=== PATIENT | male | born 1960 | race Caucasian/White ===

== ENCOUNTER → 2018-01-09 07:03 | Outpatient (CLI) | payer OTHER, SELFPAY ==
[2018-01-09 08:14] LABS: Creatinine Urine Random 128.1 mg/dL
[2018-01-09 08:21] LABS: Microalbumi Creatinin Ratio Ur 8.5 ug/mg CR (<30); Microalbumin Urine Random 1.1 mg/dL (0-1.6)
[2018-01-09 09:57] LABS: Hemoglobin A1C% w Est Avg Glu 6.6 % (4.0-6.0)
[2018-01-09 10:17] LABS: Alanine Aminotransferase 25 IU/L (21-72); Albumin 4.4 g/dL (3.5-5.0); Albumin Globulin Ratio 1.4 (1.0-2.8); Alkaline Phosphatase 58 U/L (38-126); Aspartate Aminotransferase 21 IU/L (17-59); BUN Creatinine Ratio 21.3 (6-22); Bilirubin Total 0.7 mg/dL (0.2-1.3); Blood Urea Nitrogen 17 mg/dL (9-20); Calcium 9.7 mg/dL (8.4-10.2); Carbon Dioxide 28 mmol/L (22-32); Chloride 97 mmol/L (98-107); Cholesterol 166 mg/dL (140-199); Estimated Glomerular Filt Rate > 60.0 mL/min (>60); Globulin 3.1 g/dL (1.7-4.1); Glucose 126 mg/dL (70-100); HDL Cholesterol 33 mg/dL (40-60); HEMOLYSIS < 15 (0-50); LDL Cholesterol Calculated 59 mg/dL (<100); Potassium 4.7 mmol/L (3.4-5.1); Sodium 140 mmol/L (137-145); Total Protein 7.5 g/dL (6.3-8.2); Triglycerides 370 mg/dL (35-150)
== END ==
PROVIDERS: PCP Physician Assistant; Visit Provider Physician Assistant
DX: E10.9 Type 1 diabetes mellitus without complications (principal)
CPT/HCPCS: 36415; 80053; 80061; 82043; 82570; 83036

== ENCOUNTER → 2018-05-02 16:42 | Outpatient (CLI) | payer OTHER, SELFPAY | PROVIDERS: PCP Physician Assistant; Visit Provider Physician Assistant | DX: Z13.9 Encounter for screening, unspecified (principal) ==

== ENCOUNTER → 2018-05-02 16:52 | Outpatient (CLI) | payer OTHER, SELFPAY ==
[2018-05-02 17:27] LABS: Add Manual Diff / Slide Review NO; Basophils Percent Auto 0.7 % (0-2); Hematocrit 43.8 % (41-53); Hemoglobin 15.2 g/dL (13.5-17.5); Lymphocytes Percent Auto 19.4 % (25-40); Mean Corpuscular HGB Conc 34.8 % (30-36); Mean Corpuscular Hemoglobin 31.3 PG (26-34); Monocytes Percent Auto 9.5 % (3-14); Neutrophils Absolute Auto 7100 /uL (3000-5900); Neutrophils Percent Auto 68.4 % (50-75); Platelet Count 247 X10^3/uL (150-400); Red Blood Cell Count 4.86 X10^6/uL (4.5-5.9); Red Cell Distribution Width 12.8 % (11.6-14.8); White Blood Cell Count 10.5 X10^3/uL (4.5-11.0)
[2018-05-02 17:39] LABS: Alanine Aminotransferase 68 IU/L (21-72); Albumin 4.3 g/dL (3.5-5.0); Albumin Globulin Ratio 1.4 (1.0-2.8); Alkaline Phosphatase 67 U/L (38-126); Aspartate Aminotransferase 47 IU/L (17-59); BUN Creatinine Ratio 16.3 (6-22); Bilirubin Total 0.4 mg/dL (0.2-1.3); Blood Urea Nitrogen 13 mg/dL (9-20); Calcium 9.5 mg/dL (8.4-10.2); Carbon Dioxide 21 mmol/L (22-32); Chloride 105 mmol/L (98-107); Estimated Glomerular Filt Rate > 60.0 mL/min (>60); Glucose 132 mg/dL (70-100); HEMOLYSIS 20 (0-50); Potassium 4.2 mmol/L (3.4-5.1); Sodium 141 mmol/L (137-145); Total Protein 7.3 g/dL (6.3-8.2)
== END ==
PROVIDERS: PCP Physician Assistant; Visit Provider Physician Assistant
DX: R19.7 Diarrhea, unspecified (principal)
CPT/HCPCS: 36415; 80053; 85025

== ENCOUNTER → 2018-05-03 09:18 | Outpatient (CLI) | payer OTHER, SELFPAY ==
[2018-05-03 17:30] LABS: Clostridium Difficile Tox PCR Negative for C. diff
== END ==
PROVIDERS: PCP Physician Assistant; Visit Provider Physician Assistant
DX: R19.7 Diarrhea, unspecified (principal)
CPT/HCPCS: 87015; 87045; 87427; 87493; 87899

== ENCOUNTER 2018-05-20 07:28 | Day surgery (SDC) | payer OTHER, SELFPAY ==
--- NOTE | 2018-05-20 | PATH_ITS ---
[facility] Accession Number: [id number] . 01 Material submitted: . SIGMOID POLYP AT 30 . 02 Diagnosis: Sigmoid Colon Polyp at 30 cm: Tubular adenoma. MRV/05/21/2018 . 02 Electronically signed: . Sonny Coppola MD, PhD, Pathologist NPI- [id number] . 01 Gross description: . Received one formalin-filled container labeled with the patient's name and labeled sigmoid polyp at 30. The specimen consists of two 0.1 to 0.3 cm portions of tissue. Entirely submitted in one cassette. [place] [id number] /[facility] . 02 Pathologist provided ICD-10: D12.5 . 02 CPT . 911469 Performed at: 01 [facility] [address] [id number] MD Chintan Soto MD Phone: [phone] Performed at: 02 [facility] [address] [place], [place] [id number] MD Maricruz Edwards MD Phone: [phone]
[2018-05-20 08:11] VITALS: BP 137/87; PULSE 77; RESP 16; TEMP 36.5; O2SAT 95; BMI 46.3
[2018-05-20] MEDS: SODIUM CHLORIDE 0.9% 1,000 ML 200 ML IV (08:18)
[2018-05-20 08:22] VITALS: BMI 46.3
--- NOTE | 2018-05-20 09:02 | PM.HP.1 ---
History of Present Illness Date Patient Seen: 05/20/18 Time Patient Seen: 09:03 Chief complaint: [id number] SCREENING COLONOSCOPY Narrative: 57-year-old male who presents for colorectal screening. He has never had complete colonoscopy. On further history today denies any gastrointestinal symptoms. No nausea, vomiting, loss of appetite, abdominal pain, unexplained weight loss, change in bowel habits, diarrhea, constipation, melena, hematochezia, or bright red blood per rectum. Patient History Medical History History of flexible sigmoidoscopy (Acute) Morbid obesity with BMI of 45.0-49.9, adult (Acute) Diabetes (Chronic) Herpes (Chronic 1994) Hypertension (Chronic 2007) Obstructive sleep apnea (Chronic) Chickenpox (Resolved) Mumps (Resolved) Rubella (Resolved) Surgical History Status post hernia repair (Resolved ~2010) Status post laparoscopic cholecystectomy (Resolved 09/1991) Family & Social History Family History: Reviewed 05/20/18 by Gato Ivey MD Social History: household members spouse Tobacco & Substance use: Smoking Status Never smoker alcohol intake current Meds Home Medications Medication Instructions Recorded Confirmed Type Glucose: Home Monitoring Kit kit #1 04/11/16 05/02/18 Rx Lancet: Device ea #90 04/11/16 05/02/18 Rx Glucose: Test Strips str QDAY #100 12/04/16 05/02/18 Rx tadalafil [Cialis] 20 mg PO QDAYP #100 tab 12/04/16 05/02/18 Rx bisoprolol fumarate 5 mg tablet 5 mg PO QDAY #90 tab 01/07/18 05/02/18 Rx metformin ER 500 mg 1,000 mg PO PM #180 tab 01/07/18 05/02/18 Rx tablet,extended release 24 hr spironolactone 25 mg tablet 25 mg PO QDAY #90 tab 01/07/18 05/02/18 Rx omeprazole 20 mg capsule,delayed 20 mg PO DAILY #30 cap 03/14/18 05/02/18 Rx release Allergies Allergy/AdvReac Type Severity Reaction Status Date / Time amoxicillin [AMOXICILLIN] Allergy Intermediate RASH ALL Verified 05/20/18 08:09 OVER BODY hydrocodone [HYDROCODONE] AdvReac Intermediate VOMITING Verified 05/20/18 08:09 FOR A LONG TIME AND MADE ME SICKER THAN A DOG. oxycodone [OXYCODONE] AdvReac Intermediate VOMITING Verified 05/20/18 08:09 FOR A LONG TIME AND MADE ME SICKER THAN DOG Review of Systems Review of Systems All systems reviewed & are unremarkable except as noted in HPI and below Exam Vital Signs (past 8 hours): - 05/20/18 08:11 Temperature 97.7 F Pulse Rate 77 Respiratory Rate 16 Blood Pressure 137/87 Pulse Oximetry 95 Oxygen Delivery Method Room Air Narrative Exam Narrative: Well-nourished well-developed obese male in no acute distress. Alert oriented x3. His significant other accompanies him at the bedside for my entire visit. Sclera nonicteric Regular rate rhythm Abdomen soft, nondistended, nontender, no masses. Exam somewhat limited by body habitus. Extremities show no clubbing or cyanosis Objective Labs Labs: No recent radiographic studies for review Assessment & Plan Plan: Assessment/Plan Narrative: 57-year-old male requiring colorectal screening by age criteria. Colonoscopy is currently recommended. Technical details of the procedure were discussed. Risks, benefits, alternatives were explained. Risks including but not limited to sedation, aspiration, bleeding, pain, missed lesion, incomplete examination, need for further radiographic studies, colonic perforation, need for major abdominal surgery, and all attendant risks of major surgery were explained at length. All questions were answered to his satisfaction, and he voiced understanding. Consent was placed on the chart. We will proceed as above.
--- NOTE | 2018-05-20 09:05 | PM.PREOP ---
Pre-operative Note Interval Note Pre-op Check: Yes History & Physical Reviewed by Physician, Yes Exam Performed and Yes History & Physical exam performed today by Physician Changes: No ASA Class (for procedural sedation): II
[2018-05-20] MEDS: MIDAZOLAM 5 MG/5 ML VIAL IV (09:23)
[2018-05-20] MEDS: fentaNYL 250 MCG/5 ML INJ IV (09:24)
--- NOTE | 2018-05-20 09:36 | PM.OP.ENDO ---
Operative Date/Time/Diagnoses Date of procedure: 05/20/18 Time of procedure: 09:36 Pre-op diagnosis: Colorectal screening Post-op diagnosis: other (Colon polyp) Procedure & Clinicians Study performed: 1. Sedation per surgeon 2. Colonoscopy with cold forceps polypectomy Same procedure as scheduled: Yes Indications: 57-year-old male who presents for colorectal screening. Colonoscopy is recommended. Surgeon: Gato Ivey Procedure Notes SCOAP/Timeout: Yes Procedure in detail: After obtaining informed consent, the patient was brought to the GI suite and placed in the left lateral decubitus position on the examination table. After placement of appropriate monitors, the patient was given incremental doses of Versed and Fentanyl until an appropriate level of sedation was achieved. A time out was held per SCOAP protocol. A digital rectal examination was performed and did not reveal any masses or obstructing lesions. The colonoscope was gently passed into the patient's anus and the entire colon navigated to the level of the cecum with minimal difficulty. Once in the cecum, the scope was withdrawn being sure to go before and beyond all mucosal folds and prominences and get an excellent examination. The findings are noted above. At the level of the rectal vault, the scope was retroflexed and the internal anal canal was examined. The scope was straightened and air aspirated from the colon. The instrument was removed from the patient's body and the procedure was concluded. The patient was allowed to awaken from sedation without difficulty and taken to the post-anesthesia care unit in good condition. Scope withdrawal time: 14:10 min Sedation minutes: 23 Findings: polyp Specimen(s): other (Sigmoid colon polyp at 30 cm) Complications: none Recommendations: Colonscopy in 5 years, High fiber diet and Will call with biopsy results Plan for aftercare: 1. Discharge home Follow up: as needed Disposition: PACU
[2018-05-20 09:41] VITALS: BP 128/76; PULSE 68; RESP 6; TEMP 37.4; O2SAT 95
[2018-05-20 09:45] VITALS: BP 123/70; PULSE 62; RESP 17; O2SAT 94
[2018-05-20 09:52] VITALS: BP 123/74; PULSE 62; RESP 15; TEMP 36.3; O2SAT 96
== END 2018-05-20 10:05 | disposition home or self-care (01) ==
PROVIDERS: PCP Physician Assistant; Visit Provider Surgery
PROC: 0DJD8ZZ Inspection of Lower Intestinal Tract, Via Natural or Artificial Opening Endoscopic (ICD-10-PCS; CPT 45378; principal; 2018-05-20 09:45)
DX: Z12.11 Encounter for screening for malignant neoplasm of colon (principal); E66.01 Morbid (severe) obesity due to excess calories; E11.9 Type 2 diabetes mellitus without complications; I10 Essential (primary) hypertension; G47.33 Obstructive sleep apnea (adult) (pediatric); Z68.42 Body mass index [BMI] 45.0-49.9, adult; Z79.84 Long term (current) use of oral hypoglycemic drugs; D12.5 Benign neoplasm of sigmoid colon
CPT/HCPCS: 45380; 99152; 99153; J2250; J3010

== ENCOUNTER → 2018-08-17 08:14 | Outpatient (CLI) | payer OTHER, SELFPAY ==
[2018-08-17 08:50] LABS: Hemoglobin A1C% w Est Avg Glu 6.4 % (4.0-6.0)
[2018-08-17 08:58] LABS: BUN Creatinine Ratio 17.8 (6-22); Blood Urea Nitrogen 16 mg/dL (9-20); Calcium 9.6 mg/dL (8.4-10.2); Carbon Dioxide 27 mmol/L (22-32); Chloride 101 mmol/L (98-107); Estimated Glomerular Filt Rate > 60.0 mL/min (>60); Glucose 153 mg/dL (70-100); HEMOLYSIS < 15 (0-50); Potassium 4.5 mmol/L (3.4-5.1); Sodium 138 mmol/L (137-145)
== END ==
PROVIDERS: PCP Physician Assistant; Visit Provider Physician Assistant
DX: E11.9 Type 2 diabetes mellitus without complications (principal); E66.01 Morbid (severe) obesity due to excess calories; I10 Essential (primary) hypertension; Z68.42 Body mass index [BMI] 45.0-49.9, adult
CPT/HCPCS: 36415; 80048; 83036

== ENCOUNTER → 2018-12-21 07:51 | Outpatient (CLI) | payer OTHER, SELFPAY ==
[2018-12-21 08:56] LABS: Creatinine Urine Random 107.9 mg/dL
[2018-12-21 08:57] LABS: Alanine Aminotransferase 26 IU/L (21-72); Albumin 4.4 g/dL (3.5-5.0); Albumin Globulin Ratio 1.3 (1.0-2.8); Alkaline Phosphatase 71 U/L (38-126); Aspartate Aminotransferase 25 IU/L (17-59); Bilirubin Total 0.8 mg/dL (0.2-1.3); Blood Urea Nitrogen 16 mg/dL (9-20); Calcium 9.7 mg/dL (8.4-10.2); Carbon Dioxide 29 mmol/L (22-32); Chloride 99 mmol/L (98-107); Cholesterol 173 mg/dL (140-199); Estimated Glomerular Filt Rate > 60.0 mL/min (>60); Globulin 3.5 g/dL (1.7-4.1); Glucose 158 mg/dL (70-100); HDL Cholesterol 33 mg/dL (40-60); HEMOLYSIS < 15 (0-50); LDL Cholesterol Calculated 88 mg/dL (<100); Potassium 4.5 mmol/L (3.4-5.1); Sodium 137 mmol/L (137-145); Total Protein 7.9 g/dL (6.3-8.2); Triglycerides 262 mg/dL (35-150)
[2018-12-21 09:01] LABS: Hemoglobin A1C% w Est Avg Glu 6.7 % (4.0-6.0); Microalbumi Creatinin Ratio Ur 15.7 ug/mg CR (<30); Microalbumin Urine Random 1.7 mg/dL (0-1.6)
== END ==
PROVIDERS: PCP Physician Assistant; Visit Provider Physician Assistant
DX: E11.9 Type 2 diabetes mellitus without complications (principal); E66.01 Morbid (severe) obesity due to excess calories; I10 Essential (primary) hypertension; Z68.42 Body mass index [BMI] 45.0-49.9, adult
CPT/HCPCS: 36415; 80053; 80061; 82043; 82570; 83036

== ENCOUNTER → 2019-03-29 08:17 | Outpatient (CLI) | payer OTHER, SELFPAY ==
[2019-03-29 09:14] LABS: Hemoglobin A1C% w Est Avg Glu 7.7 % (4.0-6.0)
== END ==
PROVIDERS: PCP Physician Assistant; Visit Provider Physician Assistant
DX: E11.9 Type 2 diabetes mellitus without complications (principal)
CPT/HCPCS: 36415; 83036

== ENCOUNTER → 2019-07-31 07:14 | Outpatient (CLI) | payer OTHER, SELFPAY ==
[2019-07-31 09:02] LABS: Hemoglobin A1C% w Est Avg Glu 7.4 % (4.0-6.0)
[2019-07-31 09:19] LABS: Creatinine Urine Random 101.7 mg/dL
[2019-07-31 09:23] LABS: Alanine Aminotransferase 27 IU/L (<50); Albumin 4.3 g/dL (3.5-5.0); Albumin Globulin Ratio 1.2 (1.0-2.8); Alkaline Phosphatase 71 U/L (38-126); Aspartate Aminotransferase 30 IU/L (17-59); BUN Creatinine Ratio 21.3 (6-22); Bilirubin Total 0.7 mg/dL (0.2-1.3); Blood Urea Nitrogen 17 mg/dL (9-20); Calcium 9.5 mg/dL (8.4-10.2); Carbon Dioxide 23 mmol/L (22-32); Chloride 102 mmol/L (98-107); Cholesterol 175 mg/dL (140-199); Estimated Glomerular Filt Rate > 60.0 mL/min (>60); Globulin 3.5 g/dL (1.7-4.1); Glucose 173 mg/dL (70-100); HDL Cholesterol 25 mg/dL (40-60); HEMOLYSIS < 15 (0-50); LDL Cholesterol Calculated 110 mg/dL (<100); Microalbumi Creatinin Ratio Ur 17.6 ug/mg CR (<30); Microalbumin Urine Random 1.8 mg/dL (0-1.6); Potassium 4.1 mmol/L (3.4-5.1); Sodium 139 mmol/L (137-145); Total Protein 7.8 g/dL (6.3-8.2); Triglycerides 202 mg/dL (35-150)
== END ==
PROVIDERS: PCP Physician Assistant
DX: E11.9 Type 2 diabetes mellitus without complications (principal); E66.01 Morbid (severe) obesity due to excess calories; I10 Essential (primary) hypertension; Z68.42 Body mass index [BMI] 45.0-49.9, adult
CPT/HCPCS: 36415; 80053; 80061; 82043; 82570; 83036

== ENCOUNTER → 2019-09-12 07:47 | Outpatient (CLI) | payer OTHER, SELFPAY ==
[2019-09-12 08:34] LABS: HEMOLYSIS < 15 (0-50); Potassium 4.4 mmol/L (3.4-5.1)
== END ==
DX: I10 Essential (primary) hypertension (principal)
CPT/HCPCS: 36415; 84132

== ENCOUNTER → 2019-09-16 07:37 | Outpatient (CLI) | payer OTHER, SELFPAY ==
[2019-09-16 08:29] LABS: Hemoglobin A1C% w Est Avg Glu 7.6 % (4.0-6.0)
[2019-09-16 09:19] LABS: Alanine Aminotransferase 20 IU/L (<50); Albumin 4.1 g/dL (3.5-5.0); Albumin Globulin Ratio 1.3 (1.0-2.8); Alkaline Phosphatase 69 U/L (38-126); Aspartate Aminotransferase 24 IU/L (17-59); BUN Creatinine Ratio 23.9 (6-22); Bilirubin Total 0.5 mg/dL (0.2-1.3); Blood Urea Nitrogen 17 mg/dL (9-20); Calcium 9.9 mg/dL (8.4-10.2); Carbon Dioxide 26 mmol/L (22-32); Chloride 103 mmol/L (98-107); Cholesterol 169 mg/dL (140-199); Estimated Glomerular Filt Rate > 60.0 mL/min (>60); Globulin 3.1 g/dL (1.7-4.1); Glucose 187 mg/dL (70-100); HDL Cholesterol 28 mg/dL (40-60); HEMOLYSIS < 15 (0-50); LDL Cholesterol Calculated 92 mg/dL (<100); Potassium 4.6 mmol/L (3.4-5.1); Sodium 138 mmol/L (137-145); Total Protein 7.2 g/dL (6.3-8.2); Triglycerides 246 mg/dL (35-150)
[2019-09-16 09:20] LABS: Creatinine Urine Random 145.5 mg/dL
[2019-09-16 09:25] LABS: Microalbumi Creatinin Ratio Ur 10.3 ug/mg CR (<30); Microalbumin Urine Random 1.5 mg/dL (0-1.6)
== END ==
PROVIDERS: Referring Provider Family Medicine; Visit Provider Family Medicine
DX: E11.65 Type 2 diabetes mellitus with hyperglycemia (principal); I10 Essential (primary) hypertension
CPT/HCPCS: 36415; 80053; 80061; 82043; 82570; 83036

== ENCOUNTER → 2020-03-30 11:23 | Outpatient (CLI) | payer OTHER, SELFPAY ==
--- NOTE | 2020-03-30 11:32 | DI.RAD.S_ITS ---
PROCEDURE: XR HAND LT MIN 3V INDICATIONS: left hand pain TECHNIQUE: 3 views of the hand(s) acquired. COMPARISON: None. FINDINGS: Bones: No fractures or dislocations. Carpal bones are normally aligned. No suspicious bony lesions. Soft tissues: No suspicious soft tissue calcifications. Note is made of a rounded BB metal foreign body near the 4th metacarpal neck. There also is a small metallic radiodensity adjacent to the dorsal margin of the lateral aspect of the 2nd metacarpal head. IMPRESSION: 2 metallic foreign bodies within the soft tissues as noted above but no traumatic osseous injury or evidence of osteomyelitis is found. Dictated by: Josue Nicolas M.D. on 03/30/2020 at 11:51 Approved by: Josue Nicolas M.D. on 03/30/2020 at 11:53
== END ==
PROVIDERS: PCP Family Medicine; Referring Provider Family Medicine; Visit Provider Family Medicine
DX: M79.642 Pain in left hand (principal); M79.5 Residual foreign body in soft tissue
CPT/HCPCS: 73130

== ENCOUNTER → 2020-04-14 14:07 | Outpatient (CLI) | payer OTHER, SELFPAY ==
[2020-04-14 16:17] LABS: COVID19 -Nasal RAPID Negative (Negative)
== END ==
PROVIDERS: PCP Family Medicine; Visit Provider Physician Assistant
DX: Z11.59 Encounter for screening for other viral diseases (principal)
CPT/HCPCS: 87635

== ENCOUNTER → 2020-04-21 14:44 | Outpatient (CLI) | payer OTHER, SELFPAY ==
[2020-04-21 15:31] LABS: COVID19 -Nasal RAPID Negative (Negative)
== END ==
PROVIDERS: PCP Family Medicine; Visit Provider Family Medicine
DX: Z01.812 Encounter for preprocedural laboratory examination (principal); Z20.828 Contact with and (suspected) exposure to other viral communicable diseases
CPT/HCPCS: 87635

== ENCOUNTER → 2020-04-22 13:05 | Outpatient (CLI) | payer OTHER, SELFPAY ==
--- NOTE | 2020-04-22 14:27 | PM.TREADMILL ---
Cardiac Stress Test Report Referral & Results Date Patient Seen: 04/22/20 Requesting provider: Jerardo Lopez Indication: Dyspnea, chest pressure Rest ECG: Unremarkable Procedure Note: Today following both written and verbal informed consent the patient was exercised according to a standard Gorge protocol patient went for a total of 6 minutes 2nd achieving a maximum heart rate of 152 maximum systolic blood pressure of 186. This is approximately 7.0 METS. Exercise was terminated at this point because of inability the patient to go any faster. Patient was also given Cardiolite through a previously started Hep-Lock IV by the diagnostic imaging staff approximately 1 minute prior to the cessation of exercise. There are no ST-T segment changes Rare PAC and PVC were identified Normal heart rate and blood pressure response to exercise Function aerobic impairment rates about 25% on the sedentary scale Impression: No electrocardiographic evidence of ischemia. Less than Average as expected exercise capacity. Please see perfusion imaging report as well Please note: Actual ECG tracings can be found in the PACS system.
--- NOTE | 2020-04-23 18:52 | DI.NM.S_ITS ---
DATE OF SERVICE: 04/23/2020 PROCEDURE PERFORMED: Exercise treadmill stress and rest myocardial perfusion imaging with gating to assess ejection fraction and regional wall motion. ORDERING PROVIDER: Dr. Jerardo Lopez. INDICATIONS: The patient is a 59-year-old obese male with diabetes and exertional dyspnea and chest pressure. EXERCISE TREADMILL TESTING: The patient was able to exercise for a total of 6 minutes 1 second on a standard Gorge protocol suggesting moderate-severely reduced exercise capacity with an MARIA ISABEL of +35%. He had a normal heart rate and blood pressure response to exercise, achieving a maximum heart rate of 152 BPM (93% of his predicted maximum). He had no chest discomfort. His resting ECG shows inverted T-waves in lead III, but is otherwise normal. With exercise, there are no significant ST-segment or T-wave shifts. There were no arrhythmias. At 4 minutes 59 seconds of exercise at a heart rate of 150 BPM, 26.0 millicuries of technetium-99m Myoview was injected and the patient was scanned 15 minutes later using a gated SPECT acquisition protocol. He returned the following day and was reinjected with an additional 26.6 millicuries of technetium-99m Myoview and was imaged 30 minutes later, again using a gated SPECT acquisition protocol. FINDINGS: 1. Raw data: There is fair myocardial tracer uptake. The patient was unable to lay prone to assess for any diaphragmatic attenuation. Lung/heart ratio was normal at 0.33 with a normal TID ratio of 0.89. 2. Quantitated gated SPECT: Post-stress ejection fraction is estimated at 67% without any focal wall motion abnormality and specifically the inferior wall appears to have normal contractility. Resting ejection fraction is 57% with a similar contraction pattern. Left ventricular volumes are moderately increased with a resting end-diastolic volume of 190 mL. 3. Myocardial perfusion imaging: Post-stress supine images shows a fairly normal myocardial perfusion pattern with a very subtle defect in the proximal to mid inferior wall in a pattern consistent with diaphragmatic attenuation. This could not be assessed since the patient could not lie prone. There are no other perfusion defects. The resting images show an identical perfusion pattern without any areas of improvement. IMPRESSION: 1. Probable normal myocardial perfusion study. 2. Subtle, fixed proximal to mid inferior perfusion defect that most likely reflects diaphragmatic attenuation artifact, although the patient was unable to lay prone to assess for this. While a previous nontransmural infarction cannot be excluded, the absence of any regional wall motion abnormality in this area would mitigate against this. There is no evidence for any significant myocardial ischemia. 3. Normal left ventricular systolic function without focal wall motion abnormality. There is moderate left ventricular enlargement. 4. Moderate-severely reduced exercise capacity without angina or ECG evidence of ischemia. Bryan Kim - Froilan/bruna doc#: [id number]/job#: [id number] dd: 04/23/2020 16:40:00 dt: 04/23/2020 17:45:00 DICTATING MD/COPIES TO: Bryan Castro MD; Jerardo Lopez M.D. COPIES MNE: REBECA;
== END ==
PROVIDERS: PCP Family Medicine; Referring Provider Family Medicine; Visit Provider Family Medicine
DX: R07.89 Other chest pain (principal); R06.02 Shortness of breath
CPT/HCPCS: 78452; 93016; 93017; 93018; A9502

== ENCOUNTER → 2020-04-23 11:40 | Outpatient (CLI) | payer OTHER, SELFPAY ==
[2020-04-23 12:02] LABS: Add Manual Diff / Slide Review NO; Basophils Absolute Auto 100 /uL (0-100); Basophils Percent Auto 0.6 % (0-2); Eosinophils Absolute Auto 100 /uL (0-450); Eosinophils Percent Auto 1.3 % (2-4); Hematocrit 40.6 % (41-53); Hemoglobin 13.6 g/dL (13.5-17.5); Lymphocytes Absolute Auto 1400 /uL (1100-4500); Mean Corpuscular HGB Conc 33.4 % (30-36); Mean Corpuscular Hemoglobin 30.1 PG (26-34); Mean Corpuscular Volume 90.1 fL (80-100); Monocytes Absolute Auto 800 /uL (0-900); Monocytes Percent Auto 8.4 % (3-14); Neutrophils Absolute Auto 6600 /uL (1500-7000); Neutrophils Percent Auto 73.7 % (50-75); Platelet Count 242 X10^3/uL (150-400); Red Blood Cell Count 4.51 X10^6/uL (4.5-5.9); Red Cell Distribution Width 12.8 % (11.6-14.8)
[2020-04-23 12:35] LABS: Erythrocyte Sedimentation Rate 20 MM/HR (0-15)
[2020-04-23 12:45] LABS: Chloride 104 mmol/L (98-107); HEMOLYSIS < 15 (0-50)
[2020-04-23 12:49] LABS: Alanine Aminotransferase 20 IU/L (<50); Albumin 4.3 g/dL (3.5-5.0); Albumin Globulin Ratio 1.2 (1.0-2.8); Alkaline Phosphatase 81 U/L (38-126); Aspartate Aminotransferase 27 IU/L (17-59); BUN Creatinine Ratio 22.4 (6-22); Bilirubin Total 0.6 mg/dL (0.2-1.3); Blood Urea Nitrogen 17 mg/dL (9-20); C-Reactive Protein Quant 1.4 mg/dL (<1.0); Calcium 9.2 mg/dL (8.4-10.2); Carbon Dioxide 28 mmol/L (22-32); Estimated Glomerular Filt Rate > 60.0 mL/min (>60); Globulin 3.5 g/dL (1.7-4.1); Glucose 153 mg/dL (70-100); Potassium 4.1 mmol/L (3.4-5.1); Sodium 137 mmol/L (137-145); Total Protein 7.8 g/dL (6.3-8.2)
[2020-04-23 13:18] LABS: TSH w/ Reflex to FT4 0.97 uIU/mL (0.47-4.68)
== END ==
PROVIDERS: PCP Family Medicine; Referring Provider Physician Assistant; Visit Provider Physician Assistant
DX: R51.9 Headache, unspecified (principal)
CPT/HCPCS: 36415; 80053; 84443; 85025; 85651; 86140

== ENCOUNTER → 2021-01-26 08:28 | Outpatient (CLI) | payer OTHER, SELFPAY ==
[2021-01-26 09:34] LABS: Add Manual Diff / Slide Review NO; Basophils Absolute Auto 0 /uL (0-100); Basophils Percent Auto 0.6 % (0-2); Eosinophils Absolute Auto 100 /uL (0-450); Eosinophils Percent Auto 2.1 % (2-4); Hematocrit 40.6 % (41-53); Hemoglobin 13.7 g/dL (13.5-17.5); Lymphocytes Absolute Auto 1400 /uL (1100-4500); Lymphocytes Percent Auto 20.1 % (25-40); Mean Corpuscular HGB Conc 33.9 % (30-36); Mean Corpuscular Hemoglobin 30.5 PG (26-34); Monocytes Absolute Auto 700 /uL (0-900); Monocytes Percent Auto 10.2 % (3-14); Neutrophils Absolute Auto 4600 /uL (1500-7000); Platelet Count 238 X10^3/uL (150-400); Red Blood Cell Count 4.51 X10^6/uL (4.5-5.9); Red Cell Distribution Width 13.6 % (11.6-14.8); White Blood Cell Count 6.8 X10^3/uL (4.5-11.0)
[2021-01-26 09:47] LABS: Hemoglobin A1C% w Est Avg Glu 7.8 % (4.0-6.0)
[2021-01-26 10:04] LABS: Alanine Aminotransferase 31 IU/L (<50); Albumin 4.3 g/dL (3.5-5.0); Albumin Globulin Ratio 1.3 (1.0-2.8); Alkaline Phosphatase 61 U/L (38-126); Aspartate Aminotransferase 32 IU/L (17-59); Bilirubin Total 0.9 mg/dL (0.2-1.3); Blood Urea Nitrogen 17 mg/dL (9-20); Calcium 9.7 mg/dL (8.4-10.2); Carbon Dioxide 27 mmol/L (22-32); Chloride 103 mmol/L (98-107); Cholesterol 178 mg/dL (140-199); Estimated Glomerular Filt Rate > 60.0 mL/min (>60); Globulin 3.3 g/dL (1.7-4.1); Glucose 193 mg/dL (70-100); HDL Cholesterol 32 mg/dL (40-60); HEMOLYSIS < 15 (0-50); LDL Cholesterol Calculated 107 mg/dL (<100); Potassium 4.2 mmol/L (3.4-5.1); Sodium 139 mmol/L (137-145); Total Protein 7.6 g/dL (6.3-8.2); Triglycerides 197 mg/dL (35-150)
== END ==
PROVIDERS: PCP Family Medicine; Referring Provider Family Medicine; Visit Provider Family Medicine
DX: E11.42 Type 2 diabetes mellitus with diabetic polyneuropathy (principal); E78.1 Pure hyperglyceridemia; E78.5 Hyperlipidemia, unspecified; E11.65 Type 2 diabetes mellitus with hyperglycemia; I10 Essential (primary) hypertension
CPT/HCPCS: 36415; 80053; 80061; 83036; 85025

== ENCOUNTER → 2021-04-23 08:24 | Outpatient (CLI) | payer OTHER, SELFPAY ==
[2021-04-23 09:50] LABS: Hemoglobin A1C% w Est Avg Glu 7.9 % (4.0-6.0)
[2021-04-23 10:49] LABS: Cholesterol 180 mg/dL (140-199); HDL Cholesterol 37 mg/dL (40-60); LDL Cholesterol Calculated 111 mg/dL (<100); Triglycerides 162 mg/dL (35-150)
== END ==
PROVIDERS: PCP Family Medicine; Referring Provider Family Medicine; Visit Provider Family Medicine
DX: E11.42 Type 2 diabetes mellitus with diabetic polyneuropathy (principal); E78.1 Pure hyperglyceridemia
CPT/HCPCS: 36415; 80061; 83036

== ENCOUNTER → 2021-06-21 12:27 | Outpatient (CLI) | payer OTHER, SELFPAY ==
[2021-06-21 13:47] LABS: COVID19 -Nasal RAPID Negative (Negative)
== END ==
PROVIDERS: PCP Family Medicine; Referring Provider Physician Assistant; Visit Provider Physician Assistant
DX: Z20.822 Contact with and (suspected) exposure to COVID-19 (principal); R09.89 Other specified symptoms and signs involving the circulatory and respiratory systems; R52 Pain, unspecified
CPT/HCPCS: 87635

== ENCOUNTER → 2021-08-02 09:24 | Outpatient (CLI) | payer OTHER, SELFPAY ==
[2021-08-02 11:09] LABS: Hemoglobin A1C% w Est Avg Glu 8.5 % (4.0-6.0)
== END ==
PROVIDERS: PCP Family Medicine; Referring Provider Family Medicine; Visit Provider Family Medicine
DX: E11.42 Type 2 diabetes mellitus with diabetic polyneuropathy (principal)
CPT/HCPCS: 36415; 83036

== ENCOUNTER → 2022-01-21 09:05 | Outpatient (CLI) | payer OTHER, SELFPAY ==
[2022-01-21 12:17] LABS: Hemoglobin A1C% w Est Avg Glu 8.7 % (4.0-6.0)
[2022-01-21 12:18] LABS: Alanine Aminotransferase 27 IU/L (<50); Albumin 4.1 g/dL (3.5-5.0); Albumin Globulin Ratio 1.4 (1.0-2.8); Alkaline Phosphatase 64 U/L (38-126); Aspartate Aminotransferase 28 IU/L (17-59); BUN Creatinine Ratio 14.4 (6-22); Bilirubin Total 0.8 mg/dL (0.2-1.3); Blood Urea Nitrogen 13 mg/dL (9-20); Calcium 9.1 mg/dL (8.4-10.2); Carbon Dioxide 26 mmol/L (22-32); Chloride 101 mmol/L (98-107); Estimated Glomerular Filt Rate > 60 mL/min (>60); Glucose 202 mg/dL (70-100); HEMOLYSIS < 15 (0-50); Potassium 4.2 mmol/L (3.4-5.1); Sodium 137 mmol/L (137-145); Total Protein 7.1 g/dL (6.3-8.2)
== END ==
PROVIDERS: PCP Family Medicine; Referring Provider Family Medicine; Visit Provider Family Medicine
DX: E11.42 Type 2 diabetes mellitus with diabetic polyneuropathy (principal)
CPT/HCPCS: 36415; 80053; 83036

== ENCOUNTER 2022-02-12 07:31 | Emergency (ER) | payer OTHER, SELFPAY ==
[2022-02-12 07:47] VITALS: BP 167/94; PULSE 63; RESP 20; TEMP 36.4; O2SAT 97; BMI 45.1
--- NOTE | 2022-02-12 07:57 | ED.BACK ---
HPI - Back Pain/Injury General Chief Complaint: Back Pain/Injury Stated Complaint: Lower rt back pain Time Seen by Provider: 02/12/22 07:54 Source: patient and family Mode of arrival: Ambulatory Limitations: no limitations History of Present Illness HPI Narrative: This is a 61-year-old male with history of diabetes, hypertension and dyslipidemia who presents with complaint of right flank pain sudden onset about 6:00 a.m. this morning now radiating towards the front. Patient states he is had kidney stones for 5 times in the past and states this feels very similar. No fevers or chills. He had some nausea and vomiting earlier when his pain was picking, states it sort of goes in waves. At this moment it is 5/10 but feels like it starting to climb again. Patient denies any hematuria, dysuria urgency or frequency. He did have diarrhea yesterday but no black or bloody stools he denies any constipation. Patient states he has a little bit of mild testicular discomfort when his pain is quite intense, no swelling or other testicular changes. Patient has had a prior cholecystectomy. Never had any intervention for his kidney stones in the past. No tobacco, rare alcohol, no illicit. Patient states he is allergic to amoxicillin and that he does not tolerate oral narcotics they make him vomit. Related Data Previous Rx's Medication Instructions Recorded Glucose: Home Monitoring Kit kit ##1 04/11/16 Lancet: Device ea ##90 04/11/16 Glucose: Test Strips str QDAY ##100 12/04/16 bisoprolol fumarate 5 mg tablet See Rx Instructions .Route 01/26/22 .COMPLEX #90 tabs losartan 50 mg-hydrochlorothiazide See Rx Instructions .Route 01/26/22 12.5 mg tablet .COMPLEX #90 tabs metformin 500 mg tablet,extended See Rx Instructions .Route 01/26/22 release 24 hr .COMPLEX #270 tabs semaglutide 1 mg/dose (4 mg/3 mL) 1 mg (0.75 mL) SUBCUT QWEEK #3 mL 01/26/22 subcutaneous pen injector sildenafil 100 mg tablet 100 mg PO DAILY #100 tabs 01/26/22 meloxicam 7.5 mg tablet 7.5 mg PO BID PRN pain #14 tabs 02/12/22 ondansetron 4 mg disintegrating 4 mg PO QID PRN nausea and 02/12/22 tablet vomiting #7 tabs tamsulosin 0.4 mg capsule (Flomax) 0.4 mg PO DAILY #7 caps 02/12/22 Allergies Allergy/AdvReac Type Severity Reaction Status Date / Time amoxicillin [AMOXICILLIN] Allergy Intermediate RASH ALL Verified 08/05/21 15:23 OVER BODY hydrocodone [HYDROCODONE] AdvReac Intermediate VOMITING Verified 08/05/21 15:23 FOR A LONG TIME AND MADE ME SICKER THAN A DOG. oxycodone [OXYCODONE] AdvReac Intermediate VOMITING Verified 08/05/21 15:23 FOR A LONG TIME AND MADE ME SICKER THAN DOG Review of Systems Review of Systems ROS Unobtainable: All systems reviewed & are unremarkable except as noted in HPI and below Patient History Medical History Chickenpox Foreign body (FB) in soft tissue Hand pain, left Headache Herpes (1994) History of flexible sigmoidoscopy Hypertension (2007) Hypertriglyceridemia without hypercholesterolemia Low HDL (under 40) Morbid obesity with BMI of 45.0-49.9, adult Mumps Obstructive sleep apnea Plantar fasciitis of left foot Plantar fasciitis, bilateral Pressure in left side of chest Rubella SOB (shortness of breath) on exertion Type 2 diabetes mellitus with peripheral neuropathy Surgical History Status post hernia repair (~2010) Status post laparoscopic cholecystectomy (09/1991) Family History Brother Malignant melanoma, unspecified site Brother History of skin cancer Father Type 2 diabetes mellitus without complication, unspecified retirement insulin use status Coronary artery disease involving [place] coronary artery of [place] heart without angina pectoris Mother History of lupus Social History household members: spouse Smoking Status: Never smoker second hand exposure: No alcohol intake: current substance use type: does not use Smoking Status: Never smoker alcohol intake frequency: 0-2 drinks per day Substance Use Type: does not use Exam Narrative Exam Narrative: GENERAL: Alert and oriented x three, male in mild to moderate distress. No diaphoresis. HEENT: Head normocephalic, atraumatic, EOMI, pupils reactive, face symmetric, moist mucous membranes NECK: Supple, full range of motion CARDIOVASCULAR: Regular rate and rhythm without murmurs, rubs or gallops. RESPIRATORY: Breath sounds equal bilaterally, no wheezes rales or rhonchi. ABDOMEN: Soft, nontender. Normoactive bowel sounds all 4 quadrants. No guarding or rebound, rigidity, no mass, no erythema, rash or vesicular changes. : No CVA tenderness EXTREMITIES: Normal range of motion, no clubbing or edema. Neurovascularly intact NEUROLOGICAL: Cranial nerves II through XII grossly intact. Moving all extremities SKIN: Warm, dry, no petechiae, no rashes or lesions. Initial Vital Signs Initial Vital Signs: Vital Signs Temperature 97.6 F 02/12/22 07:47 Pulse Rate 63 02/12/22 07:47 Respiratory Rate 20 02/12/22 07:47 Blood Pressure 167/94 H 02/12/22 07:47 Pulse Oximetry 97 02/12/22 07:47 Oxygen Delivery Method 02/12/22 07:47 Course Orders Ordered: Discontinued Medications Ketorolac Tromethamine (Ketorolac 30 Mg/Ml Vial) 30 mg IV NOW ONE Stop: 02/12/22 08:08 Last Admin: 02/12/22 08:27 Dose: 30 mg Documented By: Vital Signs Vital signs: Vital Signs - 8 hr 02/12/22 07:47 Temperature 97.6 F Pulse Rate 63 Respiratory Rate 20 Blood Pressure 167/94 H Pulse Oximetry 97 Oxygen Delivery Method Room Air MDM - Back Pain/Injury Lab Data Result diagrams: 02/12/22 08:20 02/12/22 08:20 Labs: Lab Results 02/12/22 02/12/22 02/12/22 Range/Units 08:00 08:20 08:20 WBC 6.5 (4.5-11.0) X10^3/uL RBC 4.62 (4.5-5.9) X10^6/uL Hgb 14.0 (13.5-17.5) g/dL Hct 40.6 L (41-53) % MCV 87.8 (80-100) fL MCH 30.4 (26-34) PG MCHC 34.6 (30-36) % RDW 13.2 (11.6-14.8) % Plt Count 246 (150-400) X10^3/uL Neut % (Auto) 64.6 (50-75) % Lymph % (Auto) 20.9 L (25-40) % Hawkins % (Auto) 11.0 (3-14) % Eos % (Auto) 2.5 (2-4) % Baso % (Auto) 1.0 (0-2) % Neut # (Auto) 4200 (3815-3630) /uL Lymph # (Auto) 1400 (1352-0753) /uL Hawkins # (Auto) 700 (0-900) /uL Eos # (Auto) 200 (0-450) /uL Baso # (Auto) 100 (0-100) /uL Sodium 136 L (137-145) mmol/L Potassium 4.6 (3.4-5.1) mmol/L Chloride 103 (98-107) mmol/L Carbon Dioxide 24 (22-32) mmol/L BUN 17 (9-20) mg/dL Creatinine 0.86 (0.66-1.25) mg/dL Estimated GFR > 60 (>60) mL/min BUN/Creatinine Ratio 19.8 (6-22) Glucose 256 H (70-100) mg/dL Calcium 9.2 (8.4-10.2) mg/dL Total Bilirubin 0.6 (0.2-1.3) mg/dL AST 29 (17-59) IU/L ALT 27 (<50) IU/L Alkaline Phosphatase 83 (38-126) U/L Total Protein 7.7 (6.3-8.2) g/dL Albumin 4.1 (3.5-5.0) g/dL Globulin 3.6 (1.7-4.1) g/dL Albumin/Globulin Ratio 1.1 (1.0-2.8) Lipase 117 (23-300) U/L Urine RBC 5-10/hpf H (0-5/HPF) Urine WBC 0-1/hpf (0-5/HPF) Ur Squamous Epith Cells 0-1 /hpf (0-5/HPF) Urine Bacteria None seen (None) Urine Mucus 1+ H (Negative) Ur Culture Indicated? Cult not indicated Urine Dip Bedside Urine Glucose 1000 mg/dl Bedside Urine Bilirubin - Negative Bedside Urine Ketone - Negative Urine Specific Shiner 1.03 Bedside Urine Occult Blood ++ Bedside Urine pH 5.5 Bedside Urine Protein - Negative Bedside Urine Urobilinogen - Negative Bedside Urine Nitrite - Negative Bedside Urine Leukocytes - Negative Esterase MDM Narrative Medical decision making narrative: This is a 61-year-old male with complaint of right flank pain which feels similar to his prior kidney stones. Patient states that he has had someone in the past. Patient has hematuria on point of care urine microscopy was sent as well as lab work including renal function. Patient's glucose is elevated but does not show any anion gap, ketones are low bicarb. Patient's urine shows hematuria but no obvious signs of infection, normal renal function discussed imaging with patient has known history of kidney stones with no change in renal dysfunction much improved after a single dose of Toradol, plan for Flomax, pain control and follow-up. Patient feels comfortable with this plan after discussion of risks versus benefits of further imaging. Patient states he is had CTs in the past which showed multiple stones in bilateral kidneys. Return precautions discussed. Discharge Plan Departure Patient Disposition: Home Clinical Impression: Kidney stone on right side Instructions: DI for Kidney Stones Activity Restrictions/Additional Instructions: Follow-up for recheck if your symptoms have not completely resolved in the next several days. Contact information for urology is included below. Take Flomax once daily until gone. You may take Zofran 1 tablet every 6 hours as needed for nausea. You can take Tylenol up to a 1000 mg every 6 hours and/or meloxicam 1 tablet every 12 hours as needed. Do not take ibuprofen or other NSAIDs with meloxicam. Prescription sent to [facility] in [place] Please return for fevers, new or worsening abdominal, back or flank pain, passing out, persistent vomiting, inability urinate or other new or concerning symptoms. Prescriptions: New ondansetron 4 mg tablet,disintegrating 4 mg PO QID PRN (Reason: nausea and vomiting) Qty: 7 0RF meloxicam 7.5 mg tablet 7.5 mg PO BID PRN (Reason: pain) Qty: 14 0RF tamsulosin [Flomax] 0.4 mg capsule 0.4 mg PO DAILY Qty: 7 0RF No Action Glucose: Home Monitoring Kit Qty: 1 0RF Lancet: Device Qty: 90 0RF Glucose: Test Strips QDAY Qty: 100 3RF semaglutide 1 mg/dose (4 mg/3 mL) pen injector 1 mg SUBCUT QWEEK Qty: 3 11RF bisoprolol fumarate 5 mg tablet See Rx Instructions .ROUTE .COMPLEX Qty: 90 3RF Dose Instruction: TAKE 1 TABLET BY MOUTH EVERY DAY Rx Instructions: TAKE 1 TABLET BY MOUTH EVERY DAY losartan-hydrochlorothiazide 50-12.5 mg tablet See Rx Instructions .ROUTE .COMPLEX Qty: 90 3RF Dose Instruction: TAKE 1 TABLET BY MOUTH DAILY Rx Instructions: TAKE 1 TABLET BY MOUTH DAILY metformin 500 mg tablet extended release 24 hr See Rx Instructions .ROUTE .COMPLEX Qty: 270 3RF Dose Instruction: TAKE 2 TABLETS BY MOUTH EVERY EVENING Rx Instructions: TAKE 2 TABLETS BY MOUTH EVERY MORNING AND 1 TABLET IN THE EVENING sildenafil 100 mg tablet 100 mg PO DAILY Qty: 100 0RF Referrals: José Luis Sahu MD [Physician] - Blayne Lopez DO [Primary Care Provider] - Visit Report Forms: Patient Portal/API
[2022-02-12] MEDS: KETOROLAC 30 MG/ML VIAL IV (08:27)
[2022-02-12 08:29] LABS: Add Manual Diff / Slide Review NO; Basophils Absolute Auto 100 /uL (0-100); Eosinophils Absolute Auto 200 /uL (0-450); Eosinophils Percent Auto 2.5 % (2-4); Hematocrit 40.6 % (41-53); Lymphocytes Absolute Auto 1400 /uL (1100-4500); Lymphocytes Percent Auto 20.9 % (25-40); Mean Corpuscular HGB Conc 34.6 % (30-36); Mean Corpuscular Hemoglobin 30.4 PG (26-34); Mean Corpuscular Volume 87.8 fL (80-100); Monocytes Absolute Auto 700 /uL (0-900); Neutrophils Absolute Auto 4200 /uL (1500-7000); Neutrophils Percent Auto 64.6 % (50-75); Platelet Count 246 X10^3/uL (150-400); Red Blood Cell Count 4.62 X10^6/uL (4.5-5.9); Red Cell Distribution Width 13.2 % (11.6-14.8); White Blood Cell Count 6.5 X10^3/uL (4.5-11.0)
[2022-02-12 08:39] LABS: Alanine Aminotransferase 27 IU/L (<50); Albumin 4.1 g/dL (3.5-5.0); Albumin Globulin Ratio 1.1 (1.0-2.8); Alkaline Phosphatase 83 U/L (38-126); Aspartate Aminotransferase 29 IU/L (17-59); BUN Creatinine Ratio 19.8 (6-22); Bilirubin Total 0.6 mg/dL (0.2-1.3); Blood Urea Nitrogen 17 mg/dL (9-20); Calcium 9.2 mg/dL (8.4-10.2); Carbon Dioxide 24 mmol/L (22-32); Chloride 103 mmol/L (98-107); Estimated Glomerular Filt Rate > 60 mL/min (>60); Globulin 3.6 g/dL (1.7-4.1); Glucose 256 mg/dL (70-100); HEMOLYSIS 18 (0-50); Lipase 117 U/L (23-300); Potassium 4.6 mmol/L (3.4-5.1); Sodium 136 mmol/L (137-145); Total Protein 7.7 g/dL (6.3-8.2)
[2022-02-12 08:41] LABS: RBC Urine 5-10/HPF (0-5/HPF)
[2022-02-12 08:42] LABS: Bacteria Urine None Seen; Culture Indicated Urine Cult Not Indicated; Mucus Urine 1+ (Negative); Squamous Epithelial Cell Urine 0-1 /HPF (0-5/HPF); WBC Urine 0-1/HPF (0-5/HPF)
== END 2022-02-12 09:11 | disposition home or self-care (01) ==
PROVIDERS: Emergency Provider Emergency Medicine; PCP Family Medicine
DX: N20.0 Calculus of kidney (principal); R11.2 Nausea with vomiting, unspecified; Z87.442 Personal history of urinary calculi
CPT/HCPCS: 36415; 80053; 81003; 81015; 83690; 85025; 96374; 99284; J1885

== ENCOUNTER 2022-09-15 08:57 | Observation (INO) | payer OTHER, SELFPAY ==
[2022-09-15] VITALS (8 sets, daily range): BP systolic 128–157; BP diastolic 63–84; PULSE 93–110; RESP 17–18; TEMP 36.6–36.7; O2SAT 94–97; BMI 46.0
--- NOTE | 2022-09-15 09:05 | DI.RAD.S_ITS ---
PROCEDURE: XR CHEST 1V INDICATIONS: Chest pain TECHNIQUE: One view of the chest was acquired. COMPARISON: None. FINDINGS: Surgical changes and devices: None. Lungs and pleura: Lungs are clear. No pleural effusions or pneumothorax. Mediastinum: Mediastinal contours appear normal. Heart size is normal. Bones and chest wall: No suspicious bony lesions. Overlying soft tissues appear unremarkable. IMPRESSION: No acute cardiopulmonary pathology. Dictated by: Perfecto Dean M.D. on 09/15/2022 at 9:21 Approved by: Perfecto Dean M.D. on 09/15/2022 at 9:21
--- NOTE | 2022-09-15 09:10 | ED.GENADULT ---
HPI - General Adult General Chief complaint: Chest Pain Stated complaint: dizzy/weak/chest pain front to back shoulder blade Time Seen by Provider: 09/15/22 09:04 Source: patient Mode of arrival: Ambulatory Limitations: no limitations History of Present Illness HPI narrative: Patient is a 61-year-old male. History of hypertension and eye-dlhslas-bgtzzdoab diabetes who is here for evaluation of dizziness which is more of a lightheadedness, feeling weak, sharp chest discomfort on the left side of his chest which has resolved that radiated to his back. He states he is still just not feeling very well. He woke up this morning not feeling very well but the chest discomfort occurred when he was at work. He states he has had chest discomfort like this in the past. He states he is had it ?many? times. He has had a stress test but that was greater than 3 years ago. Has not tried anything for symptoms prior to arrival. Related Data Home Medications Medication Instructions Recorded Confirmed metformin 500 mg tablet,extended 1,000 mg PO BID 09/15/22 09/15/22 release 24 hr prazosin 2 mg capsule mg 09/15/22 Previous Rx's Medication Instructions Recorded bisoprolol fumarate 5 mg tablet See Rx Instructions .Route 01/26/22 .COMPLEX #90 tabs losartan 100 1 tab PO DAILY #90 tabs 02/17/22 mg-hydrochlorothiazide 25 mg tablet Allergies Allergy/AdvReac Type Severity Reaction Status Date / Time amoxicillin [AMOXICILLIN] Allergy Intermediate RASH ALL Verified 09/15/22 09:54 OVER BODY hydrocodone [HYDROCODONE] AdvReac Intermediate VOMITING Verified 09/15/22 09:54 FOR A LONG TIME AND MADE ME SICKER THAN A DOG. oxycodone [OXYCODONE] AdvReac Intermediate VOMITING Verified 09/15/22 09:54 FOR A LONG TIME AND MADE ME SICKER THAN DOG Review of Systems Constitutional Constitutional: Reports system reviewed and no additional complaints, except as documented Cardiovascular Cardiovascular: Reports system reviewed and no additional complaints, except as documented Respiratory Respiratory: Reports system reviewed and no additional complaints, except as documented Gastrointestinal Gastrointestinal: Reports system reviewed and no additional complaints, except as documented Musculoskeletal Musculoskeletal: Reports system reviewed and no additional complaints, except as documented Integumentary/Breasts Skin/Breast: Reports system reviewed and no additional complaints, except as documented Neurologic Neurologic: Reports system reviewed and no additional complaints, except as documented Hematologic/Lymphatic On Anticoagulants: No Patient History Medical History Chickenpox Foreign body (FB) in soft tissue Hand pain, left Headache Herpes (1994) History of flexible sigmoidoscopy Hypertension (2007) Hypertriglyceridemia without hypercholesterolemia Low HDL (under 40) Morbid obesity with BMI of 45.0-49.9, adult [place] Obstructive sleep apnea Plantar fasciitis of left foot Plantar fasciitis, bilateral Pressure in left side of chest Rubella SOB (shortness of breath) on exertion Type 2 diabetes mellitus with peripheral neuropathy Surgical History Status post hernia repair (~2010) Status post laparoscopic cholecystectomy (09/1991) Family History Brother Malignant melanoma, unspecified site Brother History of skin cancer Father Type 2 diabetes mellitus without complication, unspecified retirement insulin use status Coronary artery disease involving [place] coronary artery of [place] heart without angina pectoris Mother History of lupus Social History household members: spouse Smoking Status: Never smoker second hand exposure: No alcohol intake: current substance use type: does not use Smoking Status: Never smoker alcohol intake frequency: 0-2 drinks per day Substance Use Type: does not use Exam Initial Vital Signs Initial Vital Signs: Vital Signs Temperature 98 F 09/15/22 09:07 Pulse Rate 107 H 09/15/22 09:07 Respiratory Rate 17 09/15/22 09:07 Blood Pressure 157/84 H 09/15/22 09:07 Pulse Oximetry 97 09/15/22 09:07 Oxygen Delivery Method Room Air 09/15/22 09:07 Const General: cooperative, healthy appearing and No ill appearing HENMT Head: normal to inspection and normocephalic Chest Chest: No crepitus and tenderness (Some mild tenderness left-sided chest) Resp Effort & Inspection: normal respiratory effort Auscultation: clear to auscultation bilaterally Cardio Rate: regular rate Rhythm: regular rhythm GI Inspection: normal to inspection Skin General: no rashes or lesions noted Neuro General: patient alert, patient awake and moves all extremities Extrem General: normal to inspection and capillary refill normal Scores HEART Score Heart Score history: Slightly Suspicious Heart Score EKG: Non-Specific repolarization disturbance Heart Score Age: 45-64 years old Heart Score risk factors: > 3 risk factors or hx of atherosclerotic disease Heart Score troponin: < or = to normal limit Heart Score Total: 4 Course Orders Ordered: ED Orders 09/15/22 09:05 XR chest 1V Stat Complete Blood Count AUTO DIFF Stat Comprehensive Metabolic Panel Stat Lipase Stat Lipid Panel Urgent Magnesium Stat TSH w/ Reflex to FT4 Urgent Troponin & CK Cardiac Panel Stat 09/15/22 09:09 EKG-12 Lead Stat 09/15/22 09:16 D Dimer Stat 09/15/22 10:56 Consult to Dietitian, Adult Urgent 09/15/22 11:15 Troponin & CK Cardiac Panel Stat 09/16/22 05:00 BMP [Basic Metabolic Panel] DAILY CBC Auto Diff [Complete Blood Count AUTO DIFF] DAILY Magnesium DAILY Troponin I Routine 09/17/22 05:00 BMP [Basic Metabolic Panel] DAILY CBC Auto Diff [Complete Blood Count AUTO DIFF] DAILY Magnesium DAILY 09/18/22 05:00 BMP [Basic Metabolic Panel] DAILY CBC Auto Diff [Complete Blood Count AUTO DIFF] DAILY Magnesium DAILY Acetaminophen (Acetaminophen 325 Mg Tablet) 650 mg PO Q6H PRN PRN Reason: Fever/Mild Pain (1-3) Aspirin (Aspirin Ec 81 Mg Tablet) 81 mg PO DAILY OSCAR Dextrose (Dextrose 50 % In Water 25 Gm/50 Ml Syringe) 25 gm IV PRN PRN PRN Reason: Hypoglycemia Hydrochlorothiazide (Hydrochlorothiazide 25 Mg Tablet) 25 mg PO DAILY OSCAR Sodium Chloride (Normal Saline 0.9%) 1,000 mls @ 125 mls/hr IV CONT OCSAR Last Admin: 09/15/22 10:07 Dose: 125 mls/hr Documented By: SOPHIA Insulin Human Lispro (Insulin Lispro 100 Unit/Ml 3ml Vial) 0 unit SUBCUT ACHS OSCAR; Protocol Last Admin: 09/15/22 12:58 Dose: Not Given Documented By: RASHARD Losartan Potassium (Losartan 50 Mg Tablet) 100 mg PO DAILY OSCAR Melatonin (Melatonin 3 Mg Tablet) 6 mg PO BEDTIME PRN PRN Reason: Insomnia Naloxone HCl (Naloxone 0.4 Mg/Ml Vial) 0.2 mg IV Q2MIN PRN PRN Reason: Opiate Reversal Nitroglycerin (Nitroglycerin 0.4 Mg Sl Tab) 0.4 mg SL [id number] PRN PRN Reason: Chest Pain Last Admin: 09/15/22 10:36 Dose: 0.4 mg Documented By: SOPHIA Polyethylene Glycol (Polyethylene Glycol 3350 17 Gm Powd.Pack) 17 gm PO DAILY PRN PRN Reason: Constipation Sennosides (Sennosides 8.6 Mg Tablet) 8.6 mg PO BID PRN PRN Reason: Constipation Discontinued Medications Aspirin (Aspirin 81 Mg Chew Tab) 324 mg PO NOW ONE Stop: 09/15/22 10:29 Last Admin: 09/15/22 10:33 Dose: 324 mg Documented By: SOPHIA Vital Signs Vital signs: Vital Signs - 8 hr 09/15/22 09:07 09/15/22 10:36 09/15/22 10:22 Temperature 98 F Pulse Rate 107 H 110 H 94 H Respiratory Rate 17 Blood Pressure 157/84 H 157/84 H Pulse Oximetry 97 95 Oxygen Delivery Method Room Air 09/15/22 10:30 09/15/22 10:38 09/15/22 10:38 Temperature Pulse Rate 93 H 97 H Respiratory Rate Blood Pressure 154/80 H Pulse Oximetry 94 95 Oxygen Delivery Method 09/15/22 10:40 09/15/22 10:40 09/15/22 11:00 Temperature Pulse Rate 107 H Respiratory Rate Blood Pressure 136/63 145/73 H Pulse Oximetry 95 Oxygen Delivery Method 09/15/22 11:00 Temperature Pulse Rate 95 H Respiratory Rate Blood Pressure Pulse Oximetry 95 Oxygen Delivery Method Medical Decision Making Lab Data Lab results reviewed: Yes I reviewed the patient's lab results. 09/15/22 09:05 09/15/22 09:05 Labs: Lab Results 09/15/22 09/15/22 09/15/22 Range/Units 09:05 09:05 09:05 WBC 9.0 (4.5-11.0) X10^3/uL RBC 4.41 L (4.5-5.9) X10^6/uL Hgb 13.6 (13.5-17.5) g/dL Hct 38.7 L (41-53) % MCV 87.9 (80-100) fL MCH 30.9 (26-34) PG MCHC 35.1 (30-36) % RDW 13.4 (11.6-14.8) % Plt Count 250 (150-400) X10^3/uL Neut % (Auto) 75.9 H (50-75) % Lymph % (Auto) 14.6 L (25-40) % [place] % (Auto) 7.7 (3-14) % Eos % (Auto) 0.6 L (2-4) % Baso % (Auto) 1.2 (0-2) % Neut # (Auto) 6800 (5945-5205) /uL Lymph # (Auto) 1300 (6594-7349) /uL [place] # (Auto) 700 (0-900) /uL Eos # (Auto) 100 (0-450) /uL Baso # (Auto) 100 (0-100) /uL D-Dimer (<500) ng/ml Sodium 136 L (137-145) mmol/L Potassium 4.4 (3.4-5.1) mmol/L Chloride 101 (98-107) mmol/L Carbon Dioxide 26 (22-32) mmol/L BUN 21 H (9-20) mg/dL Creatinine 1.04 (0.66-1.25) mg/dL Estimated GFR > 60 (>60) mL/min BUN/Creatinine Ratio 20.2 (6-22) Glucose 221 H (70-100) mg/dL Hemoglobin A1c Cancelled Calcium 9.7 (8.4-10.2) mg/dL Magnesium 1.7 (1.6-2.3) mg/dL Total Bilirubin 0.4 (0.2-1.3) mg/dL AST 32 (17-59) IU/L ALT 28 (<50) IU/L Alkaline Phosphatase 82 (38-126) U/L Total Creatine Kinase 172 H (55-170) U/L CK-MB (CK-2) 1.92 (<2.37) ng/mL CK-MB (CK-2) Rel Index 1.1 L (1.5-5.0) % Troponin I < 0.012 (0.01-0.034) ng/mL Total Protein 7.6 (6.3-8.2) g/dL Albumin 4.1 (3.5-5.0) g/dL Globulin 3.5 (1.7-4.1) g/dL Albumin/Globulin Ratio 1.2 (1.0-2.8) Triglycerides (35-150) mg/dL Cholesterol (140-199) mg/dL LDL Cholesterol, Calc (<100) mg/dL HDL Cholesterol (40-60) mg/dL Lipase 145 (23-300) U/L TSH (0.47-4.68) uIU/mL 09/15/22 09/15/22 09/15/22 Range/Units 09:05 09:05 09:16 WBC (4.5-11.0) X10^3/uL RBC (4.5-5.9) X10^6/uL Hgb (13.5-17.5) g/dL Hct (41-53) % MCV (80-100) fL MCH (26-34) PG MCHC (30-36) % RDW (11.6-14.8) % Plt Count (150-400) X10^3/uL Neut % (Auto) (50-75) % Lymph % (Auto) (25-40) % [place] % (Auto) (3-14) % Eos % (Auto) (2-4) % Baso % (Auto) (0-2) % Neut # (Auto) (9708-7136) /uL Lymph # (Auto) (4179-6517) /uL [place] # (Auto) (0-900) /uL Eos # (Auto) (0-450) /uL Baso # (Auto) (0-100) /uL D-Dimer 382 (<500) ng/ml Sodium (137-145) mmol/L Potassium (3.4-5.1) mmol/L Chloride (98-107) mmol/L Carbon Dioxide (22-32) mmol/L BUN (9-20) mg/dL Creatinine (0.66-1.25) mg/dL Estimated GFR (>60) mL/min BUN/Creatinine Ratio (6-22) Glucose (70-100) mg/dL Hemoglobin A1c Calcium (8.4-10.2) mg/dL Magnesium (1.6-2.3) mg/dL Total Bilirubin (0.2-1.3) mg/dL AST (17-59) IU/L ALT (<50) IU/L Alkaline Phosphatase (38-126) U/L Total Creatine Kinase (55-170) U/L CK-MB (CK-2) (<2.37) ng/mL CK-MB (CK-2) Rel Index (1.5-5.0) % Troponin I (0.01-0.034) ng/mL Total Protein (6.3-8.2) g/dL Albumin (3.5-5.0) g/dL Globulin (1.7-4.1) g/dL Albumin/Globulin Ratio (1.0-2.8) Triglycerides 360 H (35-150) mg/dL Cholesterol 197 (140-199) mg/dL LDL Cholesterol, Calc 95 (<100) mg/dL HDL Cholesterol 30 L (40-60) mg/dL Lipase (23-300) U/L TSH 1.08 (0.47-4.68) uIU/mL Imaging Data Chest x-ray: Radiologist's Impression: PROCEDURE:? XR CHEST 1V ? INDICATIONS:? Chest pain ? TECHNIQUE:? One view of the chest was acquired.? ? COMPARISON:? None. ? FINDINGS:? ? Surgical changes and devices:? None.? ? Lungs and pleura:? Lungs are clear.? No pleural effusions or pneumothorax.? ? Mediastinum:? Mediastinal contours appear normal.? Heart size is normal.? ? Bones and chest wall:? No suspicious bony lesions.? Overlying soft tissues appear unremarkable.? ? IMPRESSION:? No acute cardiopulmonary pathology. ECG Data Attestation: I personally reviewed and interpreted this ECG as follows: Interpretation: Sinus tachycardia Ventricular rate 101 Normal QRS Normal axis One PVC Nonspecific ST T wave changes MDM Narrative Medical decision making narrative: Patient does have a heart score 4. Nonspecific changes on his EKG. Discussed options to include discharge home versus risk stratification as an inpatient and patient states he would rather stay here in the hospital to have his testing done. Patient is given an aspirin. I did discuss the case with Dr. Sumner on-call for hospitalist Medicine who will admit for further evaluation and treatment. Discharge Plan Departure Patient Disposition: Admitted as Observation Clinical Impression: Atypical chest pain, Hypertension Admit Date/Time: 09/15/22 11:08 Admit Provider: Sonny Sumner
[2022-09-15 09:13] LABS: Add Manual Diff / Slide Review NO; Basophils Absolute Auto 100 /uL (0-100); Basophils Percent Auto 1.2 % (0-2); Eosinophils Absolute Auto 100 /uL (0-450); Eosinophils Percent Auto 0.6 % (2-4); Hematocrit 38.7 % (41-53); Hemoglobin 13.6 g/dL (13.5-17.5); Lymphocytes Absolute Auto 1300 /uL (1100-4500); Lymphocytes Percent Auto 14.6 % (25-40); Mean Corpuscular HGB Conc 35.1 % (30-36); Mean Corpuscular Hemoglobin 30.9 PG (26-34); Mean Corpuscular Volume 87.9 fL (80-100); Monocytes Absolute Auto 700 /uL (0-900); Monocytes Percent Auto 7.7 % (3-14); Neutrophils Absolute Auto 6800 /uL (1500-7000); Neutrophils Percent Auto 75.9 % (50-75); Platelet Count 250 X10^3/uL (150-400); Red Blood Cell Count 4.41 X10^6/uL (4.5-5.9); Red Cell Distribution Width 13.4 % (11.6-14.8)
[2022-09-15 09:25] LABS: D Dimer 382 ng/ml (<500)
[2022-09-15 09:26] LABS: Alanine Aminotransferase 28 IU/L (<50); Albumin 4.1 g/dL (3.5-5.0); Albumin Globulin Ratio 1.2 (1.0-2.8); Alkaline Phosphatase 82 U/L (38-126); Aspartate Aminotransferase 32 IU/L (17-59); BUN Creatinine Ratio 20.2 (6-22); Bilirubin Total 0.4 mg/dL (0.2-1.3); Blood Urea Nitrogen 21 mg/dL (9-20); Calcium 9.7 mg/dL (8.4-10.2); Carbon Dioxide 26 mmol/L (22-32); Chloride 101 mmol/L (98-107); Creatine Kinase 172 U/L (55-170); Estimated Glomerular Filt Rate > 60 mL/min (>60); Globulin 3.5 g/dL (1.7-4.1); Glucose 221 mg/dL (70-100); HEMOLYSIS < 15 (0-50); Lipase 145 U/L (23-300); Magnesium 1.7 mg/dL (1.6-2.3); Potassium 4.4 mmol/L (3.4-5.1); Sodium 136 mmol/L (137-145); Total Protein 7.6 g/dL (6.3-8.2)
[2022-09-15 09:37] LABS: Troponin I < 0.012 ng/mL (0.01-0.034)
[2022-09-15 09:41] LABS: CKMB % Relative Index 1.1 % (1.5-5.0); Creatine Kinase MB 1.92 ng/mL (<2.37)
[2022-09-15] MEDS: SODIUM CHLORIDE 0.9% 1,000 ML 125 ML IV (10:07)
[2022-09-15] MEDS: ASPIRIN 81 MG CHEW TAB 324 MG PO (10:33)
[2022-09-15] MEDS: NITROGLYCERIN 0.4 MG SL TAB SL (10:36)
[2022-09-15 11:46] LABS: Creatine Kinase 145 U/L (55-170)
[2022-09-15 11:55] LABS: COVID19 -Nasal RAPID Negative (Negative)
[2022-09-15 11:58] LABS: Troponin I < 0.012 ng/mL (0.01-0.034)
[2022-09-15 12:02] LABS: Cholesterol 197 mg/dL (140-199); HDL Cholesterol 30 mg/dL (40-60); LDL Cholesterol Calculated 95 mg/dL (<100); Triglycerides 360 mg/dL (35-150)
[2022-09-15 12:23] LABS: TSH w/ Reflex to FT4 1.08 uIU/mL (0.47-4.68)
--- NOTE | 2022-09-15 12:48 | P.HP_ITS ---
History of Present Illness History of Present Illness Date Patient Seen: 09/15/22 Time Patient Seen: 14:00 Chief complaint: dizzy/weak/chest pain front to back shoulder blade Narrative: Bryan Kim is a 61yo M with PMH of DM2, HTN, NARCISO on CPAP, and morbid obes ity who presents with exertional dyspnea and chest pain. Patient says he went to work today and didn't feel well, with heaviness in his legs, shortness of breath and left-sided chest pain. He did note the CP was reproducible when he pushed in a specific spot on his chest. Patient works as a nursery school attendant and says his normal job duties were much more difficult than usual and made him out of [place] which scared him. He has a family history of heart attacks and strokes in his father's side of the family. His father is 86 and has had a heart attack in the past. Patient also earlier this week had to go home from work due to feeling very fatigued. He went home and slept all day. He denies cough, rhinorrhea, congestion or fevers. No diarrhea, abd pain, lightheadedness or NV. In the ED an EKG was normal, initial trop negative. Patient denies current CP. [facility] Medical History Chickenpox Foreign body (FB) in soft tissue Hand pain, left Headache Herpes (1994) History of flexible sigmoidoscopy Hypertension (2007) Hypertriglyceridemia without hypercholesterolemia Low HDL (under 40) Morbid obesity with BMI of 45.0-49.9, adult [place] Obstructive sleep apnea Plantar fasciitis of left foot Plantar fasciitis, bilateral Pressure in left side of chest Rubella SOB (shortness of breath) on exertion Type 2 diabetes mellitus with peripheral neuropathy Surgical History Status post hernia repair (~2010) Status post laparoscopic cholecystectomy (09/1991) Family History Brother Malignant melanoma, unspecified site Brother History of skin cancer Father Type 2 diabetes mellitus without complication, unspecified buttermaker continuous churn insulin use status Coronary artery disease involving [place] coronary artery of [place] heart wit hout angina pectoris Mother History of lupus Social History household members: spouse Smoking Status: Never smoker second hand exposure: No alcohol intake: current substance use type: does not use Meds Home Medications and Allergies Home Medications Medication Instructions Recorded Confirmed Type bisoprolol fumarate 5 mg tablet See Rx Instructions .Route 01/26/22 09/15/22 Rx .COMPLEX #90 tabs losartan 100 1 tab PO DAILY #90 tabs 02/17/22 09/15/22 Rx mg-hydrochlorothiazide 25 mg tablet metformin 500 mg tablet,extended 1,000 mg PO BID 09/15/22 09/15/22 History release 24 hr prazosin 2 mg capsule mg 09/15/22 History Allergies Allergy/AdvReac Type Severity Reaction Status Date / Time amoxicillin [AMOXICILLIN] Allergy Intermediate RASH ALL Verified 09/15/22 09:54 OVER BODY hydrocodone [HYDROCODONE] AdvReac Intermediate VOMITING Verified 09/15/22 09:54 FOR A LONG TIME AND MADE ME SICKER THAN A DOG. oxycodone [OXYCODONE] AdvReac Intermediate VOMITING Verified 09/15/22 09:54 FOR A LONG TIME AND MADE ME SICKER THAN DOG Review of Systems Review of Systems Narrative: All other systems reviewed with the patient and are negative unless otherwise stated. Exam Vital Signs (past 8 hours): - 09/15/22 09:07 09/15/22 10:36 09/15/22 10:22 Temperature 98 F Pulse Rate 107 H 110 H 94 H Respiratory Rate 17 Blood Pressure 157/84 H 157/84 H Pulse Oximetry 97 95 Oxygen Delivery Method Room Air Oxygen Flow Rate 09/15/22 10:30 09/15/22 10:38 09/15/22 10:38 Temperature Pulse Rate 93 H 97 H Respiratory Rate Blood Pressure 154/80 H Pulse Oximetry 94 95 Oxygen Delivery Method Oxygen Flow Rate 09/15/22 10:40 09/15/22 10:40 09/15/22 11:00 Temperature Pulse Rate 107 H Respiratory Rate Blood Pressure 136/63 145/73 H Pulse Oximetry 95 Oxygen Delivery Method Oxygen Flow Rate 09/15/22 11:00 09/15/22 11:10 09/15/22 12:00 Temperature 98.1 F Pulse Rate 95 H 100 H Respiratory Rate 18 Blood Pressure 128/64 Pulse Oximetry 95 94 Oxygen Delivery Method Room Air Oxygen Flow Rate 0 Oxygen Delivery Method Room Air Oxygen Flow Rate 0 Narrative Exam Narrative: GEN: no acute distress, obese male HEENT: moist mucous membranes, PERRL NECK: trachea midline, no JVD CV: regular rate and rhythm, no murmurs PULM: clear bilaterally ABD: soft, nontender, nondistended, no organomegaly EXT: warm and well perfused with no edema NEURO: awake, alert, oriented, no focal deficits Objective Labs 09/15/22 09:05 09/15/22 09:05 Labs: Laboratory Results - last 24 hr 09/15/22 09/15/22 09/15/22 09:05 09:05 09:05 WBC 9.0 RBC 4.41 L Hgb 13.6 Hct 38.7 L MCV 87.9 MCH 30.9 MCHC 35.1 RDW 13.4 Plt Count 250 Neut % (Auto) 75.9 H Lymph % (Auto) 14.6 L [place] % (Auto) 7.7 Eos % (Auto) 0.6 L Baso % (Auto) 1.2 Neut # (Auto) 6800 Lymph # (Auto) 1300 [place] # (Auto) 700 Eos # (Auto) 100 Baso # (Auto) 100 D-Dimer Sodium 136 L Potassium 4.4 Chloride 101 Carbon Dioxide 26 BUN 21 H Creatinine 1.04 Estimated GFR > 60 BUN/Creatinine Ratio 20.2 Glucose 221 H Hemoglobin A1c Cancelled Calcium 9.7 Magnesium 1.7 Total Bilirubin 0.4 AST 32 ALT 28 Alkaline Phosphatase 82 Total Creatine Kinase 172 H CK-MB (CK-2) 1.92 CK-MB (CK-2) Rel Index 1.1 L Troponin I < 0.012 Total Protein 7.6 Albumin 4.1 Globulin 3.5 Albumin/Globulin Ratio 1.2 Triglycerides Cholesterol LDL Cholesterol, Calc HDL Cholesterol Lipase 145 TSH SARS-CoV-2 (PCR) 09/15/22 09/15/22 09/15/22 09:05 09:05 09:16 WBC RBC Hgb Hct MCV MCH MCHC RDW Plt Count Neut % (Auto) Lymph % (Auto) [place] % (Auto) Eos % (Auto) Baso % (Auto) Neut # (Auto) Lymph # (Auto) [place] # (Auto) Eos # (Auto) Baso # (Auto) D-Dimer 382 Sodium Potassium Chloride Carbon Dioxide BUN Creatinine Estimated GFR BUN/Creatinine Ratio Glucose Hemoglobin A1c Calcium Magnesium Total Bilirubin AST ALT Alkaline Phosphatase Total Creatine Kinase CK-MB (CK-2) CK-MB (CK-2) Rel Index Troponin I Total Protein Albumin Globulin Albumin/Globulin Ratio Triglycerides 360 H Cholesterol 197 LDL Cholesterol, Calc 95 HDL Cholesterol 30 L Lipase TSH 1.08 SARS-CoV-2 (PCR) 09/15/22 09/15/22 11:15 11:20 WBC RBC Hgb Hct MCV MCH MCHC RDW Plt Count Neut % (Auto) Lymph % (Auto) [place] % (Auto) Eos % (Auto) Baso % (Auto) Neut # (Auto) Lymph # (Auto) [place] # (Auto) Eos # (Auto) Baso # (Auto) D-Dimer Sodium Potassium Chloride Carbon Dioxide BUN Creatinine Estimated GFR BUN/Creatinine Ratio Glucose Hemoglobin A1c Calcium Magnesium Total Bilirubin AST ALT Alkaline Phosphatase Total Creatine Kinase 145 CK-MB (CK-2) 1.50 CK-MB (CK-2) Rel Index 1.0 L Troponin I < 0.012 Total Protein Albumin Globulin Albumin/Globulin Ratio Triglycerides Cholesterol LDL Cholesterol, Calc HDL Cholesterol Lipase TSH SARS-CoV-2 (PCR) Negative Assessment & Plan Assessment & Plan narrative: # chest pain and dyspnea with exertion -chest pain atypical and reproducible on exam -tropes negative x2, EKG without ST changes -nuclear stress test ordered, patient previously had normal nuclear stress test in 2019 -check A1c, lipids and TSH -echo ordered # type 2 diabetes -hold home metformin and initiate low-dose sliding scale insulin # hypertension -continue home losartan and hydrochlorothiazide # morbid obesity -BMI 46 Code status is full code. COVID negative. DVT prophylaxis with Lovenox. Proxy is . I have reviewed home meds and used all available resources to reconcile the home meds. This patient will be admitted as observation and will require less than 2 midnights of hospital time to treat S pain and dyspnea.
--- NOTE | 2022-09-15 13:37 | DIET.CONS ---
Addendum entered by Winnie Zhao 09/15/22 14:49: RD agrees with fall internship note below. Original Note: Dietary Consultation Note Admission Date: 09/15/2022 11:08 Assessment: 61 y/o M with chief complaint of dizziness/weakness/chest pain. RD consulted for DM (A1c 8.6%). Met with pt at bedside to discuss DM dietary management.? Pt reports that he eats too much CHO and is ready to make a change. Recently got some educational reading material and joined the pool for lap swimming.? Diet recall: B: potatoes, [place], garlic, mushrooms, eggs OR oatmeal. L: dinner leftovers.? D: pasta with hamburger meat or chicken with tomato sauce OR rice a yeison with carrots and hamburger meat.? Snacks: girl portfolio director cookies OR bananas (multiple in 1 day) OR skinny popcorn. DM medications: Metformin 1000 mg BID Glipizide 5 mg? Semaglutide 1 mg subcut qweek Ht: 183 cm Wt: 154.221 kg BMI: 46.0 MNA: 14 [place] Score: 22 Diet: 09/15/22 10:59 NPO Diet Diet Modifications: NPO Type: NPO except for Meds Labs: RBC 4.41 X10^6/uL (4.5-5.9) L 09/15/22 09:05 Hgb 13.6 g/dL (13.5-17.5) 09/15/22 09:05 Hct 38.7 % (41-53) L 09/15/22 09:05 Creatinine 1.04 mg/dL (0.66-1.25) 09/15/22 09:05 Hemoglobin A1c Cancelled 09/15/22 09:05 Nutrition Diagnosis: altered nutrition related laboratory values (A1c) r/t endocrine dysfunction aeb A1c 8.6% (H), diet recall indicating high CHO intake. Interventions: 1. Educated pt on CHO counting with handout.? 2. Recommended with 30-45 g CHO per snack, 45-60 g CHO per meal, paired with protein (and fiber).? 3. Suggested ways to make snacks and meals more DM friendly.? Monitoring/Evaluations: RD consult prn. Electronically Signed by: Avani Meier 09/15/22 13:37 Clinical Dietitian [address] [id number]
--- NOTE | 2022-09-15 17:29 | PM.DS.1 ---
History of Present Illness History of Present Illness Date Patient Seen: 09/15/22 Time Patient Seen: 14:00 Chief complaint: dizzy/weak/chest pain front to back shoulder blade Narrative: Bryan Kim is a 61yo M with PMH of DM2, HTN, NARCISO on CPAP, and morbid obesity who presents with exertional dyspnea and chest pain. Patient says he went to work today and didn't feel well, with heaviness in his legs, shortness of breath and left-sided chest pain. He did note the CP was reproducible when he pushed in a specific spot on his chest. 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 He has a family history of heart attacks and strokes in his father's side of the family. His father is 86 and has had a heart attack in the past. Patient also earlier this week had to go home from work due to feeling very fatigued. He went home and slept all day. He denies cough, rhinorrhea, congestion or fevers. No diarrhea, abd pain, lightheadedness or NV. In the ED an EKG was normal, initial trop negative. Patient denies current CP. Discharge Providers Provider Date of admission: 09/15/22 11:08 Discharge Date: 09/15/22 Primary care physician: Blayne Lopez DO Consults: 09/15/22 10:56 Consult to Dietitian, Adult Urgent Comment: Reason For Exam: diabetes A1c 8.6% Discharge provider: Sonny Sumner DO Summary Hospital Course Discharge Diagnosis: # chest pain and dyspnea with exertion -chest pain atypical and reproducible on exam -trops negative x2, EKG without ST changes -nuclear stress test returned as low-risk study, Dr. Hanks said can get echo as outpatient -A1c pending, LDL 95 and TSH normal -patient will speak with PCP at appt next week about ordering echo # type 2 diabetes -hold home metformin and initiate low-dose sliding scale insulin # hypertension -continue home losartan and hydrochlorothiazide # morbid obesity -BMI 46 Code status is full code. COVID negative. DVT prophylaxis with Lovenox. Proxy is . I have reviewed home meds and used all available resources to reconcile the home meds. This patient will be admitted as observation and will require less than 2 midnights of hospital time to treat chest pain and dyspnea. Hospital Course: Admitted for atypical CP and SOB on exertion. EKG, troponins, and nuclear stress test were normal. Patient discharged to f/u with PCP next week to have echo ordered. Exam Vital Signs (past 8 hours): - 09/15/22 10:36 09/15/22 10:22 09/15/22 10:30 Temperature Pulse Rate 110 H 94 H 93 H Respiratory Rate Blood Pressure 157/84 H Pulse Oximetry 95 94 Oxygen Delivery Method Oxygen Flow Rate 09/15/22 10:38 09/15/22 10:38 09/15/22 10:40 Temperature Pulse Rate 97 H 107 H Respiratory Rate Blood Pressure 154/80 H Pulse Oximetry 95 95 Oxygen Delivery Method Oxygen Flow Rate 09/15/22 10:40 09/15/22 11:00 09/15/22 11:00 Temperature Pulse Rate 95 H Respiratory Rate Blood Pressure 136/63 145/73 H Pulse Oximetry 95 Oxygen Delivery Method Oxygen Flow Rate 09/15/22 11:10 09/15/22 12:00 Temperature 98.1 F Pulse Rate 100 H Respiratory Rate 18 Blood Pressure 128/64 Pulse Oximetry 94 Oxygen Delivery Method Room Air Oxygen Flow Rate 0 Oxygen Delivery Method Room Air Oxygen Flow Rate 0 Narrative Exam Narrative: GEN: no acute distress, obese male HEENT: moist mucous membranes, PERRL NECK: trachea midline, no JVD CV: regular rate and rhythm, no murmurs PULM: clear bilaterally ABD: soft, nontender, nondistended, no organomegaly EXT: warm and well perfused with no edema NEURO: awake, alert, oriented, no focal deficits Objective Labs 09/15/22 09:05 09/15/22 09:05 Labs: Laboratory Results - last 24 hr 09/15/22 09/15/22 09/15/22 09:05 09:05 09:05 WBC 9.0 RBC 4.41 L Hgb 13.6 Hct 38.7 L MCV 87.9 MCH 30.9 MCHC 35.1 RDW 13.4 Plt Count 250 Neut % (Auto) 75.9 H Lymph % (Auto) 14.6 L Wallace % (Auto) 7.7 Eos % (Auto) 0.6 L Baso % (Auto) 1.2 Neut # (Auto) 6800 Lymph # (Auto) 1300 Wallace # (Auto) 700 Eos # (Auto) 100 Baso # (Auto) 100 D-Dimer Sodium 136 L Potassium 4.4 Chloride 101 Carbon Dioxide 26 BUN 21 H Creatinine 1.04 Estimated GFR > 60 BUN/Creatinine Ratio 20.2 Glucose 221 H Hemoglobin A1c Cancelled Calcium 9.7 Magnesium 1.7 Total Bilirubin 0.4 AST 32 ALT 28 Alkaline Phosphatase 82 Total Creatine Kinase 172 H CK-MB (CK-2) 1.92 CK-MB (CK-2) Rel Index 1.1 L Troponin I < 0.012 Total Protein 7.6 Albumin 4.1 Globulin 3.5 Albumin/Globulin Ratio 1.2 Triglycerides Cholesterol LDL Cholesterol, Calc HDL Cholesterol Lipase 145 TSH SARS-CoV-2 (PCR) 09/15/22 09/15/22 09/15/22 09:05 09:05 09:16 WBC RBC Hgb Hct MCV MCH MCHC RDW Plt Count Neut % (Auto) Lymph % (Auto) Wallace % (Auto) Eos % (Auto) Baso % (Auto) Neut # (Auto) Lymph # (Auto) Wallace # (Auto) Eos # (Auto) Baso # (Auto) D-Dimer 382 Sodium Potassium Chloride Carbon Dioxide BUN Creatinine Estimated GFR BUN/Creatinine Ratio Glucose Hemoglobin A1c Calcium Magnesium Total Bilirubin AST ALT Alkaline Phosphatase Total Creatine Kinase CK-MB (CK-2) CK-MB (CK-2) Rel Index Troponin I Total Protein Albumin Globulin Albumin/Globulin Ratio Triglycerides 360 H Cholesterol 197 LDL Cholesterol, Calc 95 HDL Cholesterol 30 L Lipase TSH 1.08 SARS-CoV-2 (PCR) 09/15/22 09/15/22 11:15 11:20 WBC RBC Hgb Hct MCV MCH MCHC RDW Plt Count Neut % (Auto) Lymph % (Auto) Wallace % (Auto) Eos % (Auto) Baso % (Auto) Neut # (Auto) Lymph # (Auto) Wallace # (Auto) Eos # (Auto) Baso # (Auto) D-Dimer Sodium Potassium Chloride Carbon Dioxide BUN Creatinine Estimated GFR BUN/Creatinine Ratio Glucose Hemoglobin A1c Calcium Magnesium Total Bilirubin AST ALT Alkaline Phosphatase Total Creatine Kinase 145 CK-MB (CK-2) 1.50 CK-MB (CK-2) Rel Index 1.0 L Troponin I < 0.012 Total Protein Albumin Globulin Albumin/Globulin Ratio Triglycerides Cholesterol LDL Cholesterol, Calc HDL Cholesterol Lipase TSH SARS-CoV-2 (PCR) Negative [facility] Medical History Chickenpox Foreign body (FB) in soft tissue Hand pain, left Headache Herpes (1994) History of flexible sigmoidoscopy Hypertension (2007) Hypertriglyceridemia without hypercholesterolemia Low HDL (under 40) Morbid obesity with BMI of 45.0-49.9, adult [place] Obstructive sleep apnea Plantar fasciitis of left foot Plantar fasciitis, bilateral Pressure in left side of chest Rubella SOB (shortness of breath) on exertion Type 2 diabetes mellitus with peripheral neuropathy Surgical History Status post hernia repair () Status post laparoscopic cholecystectomy (09/1991) Family History Brother Malignant melanoma, unspecified site Brother History of skin cancer Father Type 2 diabetes mellitus without complication, unspecified computer terminal operator insulin use status Coronary artery disease involving [place] coronary artery of [place] heart without angina pectoris Mother History of lupus Social History household members: spouse Smoking Status: Never smoker second hand exposure: No alcohol intake: current substance use type: does not use Discharge Plan Discharge Plan Patient Disposition: Home Provider Discharge Comment: You were admitted for chest pain and shortness of breath. Your stress test was reassuring and deemed a low-risk study by cardiology. Also your heart enzymes and EKG were normal. Cardiology recommends you get a heart echo as an outpatient from your PCP. Your A1c was checked and is pending. Your chest x-ray was also normal. We think your chest pain was atypical and was likely not your heart, as well as the shortness of breath. Discharge orders & Medications Prescriptions: Continued losartan-hydrochlorothiazide 100-25 mg tablet 1 tab PO DAILY Qty: 90 3RF bisoprolol fumarate 5 mg tablet See Rx Instructions .ROUTE .COMPLEX Qty: 90 3RF Dose Instruction: TAKE 1 TABLET BY MOUTH EVERY DAY Rx Instructions: TAKE 1 TABLET BY MOUTH EVERY DAY metformin 500 mg tablet extended release 24 hr 1,000 mg PO BID prazosin 2 mg capsule Follow up/Referrals: Blayne Lopez DO [Primary Care Provider] - Visit Report/Discharge Packet Stand Alone Forms: Patient Portal/API, Stroke Signs & Symptoms Discharge Data Primary Care Provider: Blayne Lopez Attending Provider: Sonny Sumner Admit Date/Time: 09/15/22 11:08 Discharges patient from system. Discharge Date/Time: 09/15/22 17:32
--- NOTE | 2022-09-15 17:54 | DI.NM.S_ITS ---
DATE OF SERVICE: 09/15/2022 PROCEDURE: Exercise perfusion study. INDICATIONS: Hypertension, hyperlipidemia, chest pain, type 2 DM. RADIOPHARMACEUTICAL: This is a stress study only. 26.3 millicurie technetium- 99m Myoview IV was injected at stress. CARDIAC STRESS: The patient underwent exercise perfusion study under the supervision of an attending staff. The patient walked on [place]orge protocol for 4 minutes and 04 seconds, achieved maximum heart rate of 145, which was 90% of target heart rate. Normal blood pressure response. Resting blood pressure 122/80 mmHg. Peak blood pressure 174/88 mmHg. 7 METs of workload. MARIA ISABEL positive 49%. The patient felt fatigue and shortness of breath, as well as leg weakness. No chest pain. Baseline rhythm sinus. During stress, no convincing ischemic changes seen. No significant arrhythmias seen. RAW DATA: The patient's weight is 340 pounds. Increased subdiaphragmatic activity. GATED STUDY: Stress LV ejection fraction 75% without any obvious wall motion abnormalities. Stress end-diastolic volume 160 mL. TID ratio 1.09, which is within normal limits. Lung/heart ratio 0.24, which is within normal limits. MYOCARDIAL PERFUSION SCAN: Stress supine and stress prone images were compared to each other. Stress supine images revealed small size, mildly decreased perfusion of base to mid inferior wall as well as inferior apex which got significantly improved during stress prone images. Stress prone images remained to have minimally decreased perfusion of basal inferior wall. The patient had exercise perfusion study in April 2020. At that time, also had base to mid inferior wall defect. At that time, the patient did not have any prone images. Diaphragmatic attenuation was suspected as well at that time. CONCLUSION: I will call this study likely a normal myocardial perfusion study with evidence of diaphragmatic tissue attenuation artifact, which got improved during stress prone images. The patient's weight is 340 pounds. Inferior wall is moving well, which goes against diagnosis of previous transmural myocardial infarction. Stress left ventricular ejection fraction 75%. Diminished exercise tolerance. Normal hemodynamic response. No significant ischemic electrocardiographic changes or arrhythmias. Overall, low-risk myocardial perfusion scan. Correlate clinically. Kim, Robert - MANAGER THERAPY/janes/nm doc#: [id number]/job#: [id number] dd: 09/15/2022 16:45:00 dt: 09/15/2022 17:42:00 DICTATING MD/COPIES TO: Moose Hanks MD COPIES MNE: UBALDO;
== END 2022-09-15 17:32 | disposition home or self-care (01) ==
LOC: ED 09:21 → AC 11:09
PROVIDERS: Admitting Provider Student in an Organized Health Care Education/Training Program; Emergency Provider Emergency Medicine; PCP Family Medicine; Referring Provider Emergency Medicine; Visit Provider Student in an Organized Health Care Education/Training Program
DX: R42 Dizziness and giddiness (principal); R07.9 Chest pain, unspecified; R06.00 Dyspnea, unspecified; I10 Essential (primary) hypertension; E11.9 Type 2 diabetes mellitus without complications; E66.01 Morbid (severe) obesity due to excess calories; Z68.42 Body mass index [BMI] 45.0-49.9, adult; Z79.84 Long term (current) use of oral hypoglycemic drugs; Z20.822 Contact with and (suspected) exposure to COVID-19
CPT/HCPCS: 36415; 71045; 78451; 80053; 80061; 82550; 82553; 82962; 83036; 83690; 83735; 84443; 84484; 85025; 85379; 87635; 93005; 93010; 93017; 99284; C9803; G0378; A9502

== ENCOUNTER → 2022-10-04 07:49 | Outpatient (CLI) | payer OTHER, SELFPAY ==
[2022-09-15 11:10] VITALS: BMI 46.0
--- NOTE | 2022-10-04 07:50 | DI.ECHO.S_ITS ---
[place] [facility]---------+ [facility] +---------+ : : [address] : : : : [id number] : : : : Phone: [phone] Echocardiogram Report + + :Name: BALBIR MCMAHON Study Date: 10/04/2022 Height: 72 in : :[facility] ReadingLocation: Weight: 340 lb : : Gender: Male BSA: 2.7 m2 : :: 1960 Age: 61 yrs BP: 160/91 mmHg: :Reason For Study: DYSPNEA : :Ordering Physician: KELSEA GRIERPerformed By: Clarissa Graves : :Referring: KELSEA GRIER : + + Interpretation Summary The ejection fraction is estimated to be 60-65%. Left ventricular wall motion is normal. There is mild mitral regurgitation. Procedure: A two-dimensional transthoracic echocardiogram with color flow and Doppler was performed. The study quality was technically adequate. There is no prior echocardiogram noted for this patient. The patient was in sinus rhythm with heart rates between 62-66 bpm during the exam. Left Ventricle: The left ventricle is grossly normal size. The estimated left ventricular end diastolic volume is 127 ml. Left ventricular wall thickness is at the upper limits of normal. The ejection fraction is estimated to be 60-65%. Left ventricular wall motion is normal. Right Ventricle: The right ventricle is normal in size and function. Atria: The left atrium is mildly dilated. Right atrial size is normal. There is no Doppler evidence for an interatrial shunt. Mitral Valve: The mitral valve is normal in structure and function. There is mild mitral regurgitation. Aortic Valve: The aortic valve is trileaflet. The aortic valve opens well. There is no aortic valve stenosis. No aortic regurgitation is present. Tricuspid Valve: The tricuspid valve is normal in structure and function. There is trace tricuspid regurgitation. Pulmonic Valve: The pulmonic valve leaflets are thin and pliable; valve motion is normal. There is trace pulmonic regurgitation. Great Vessels: The aortic root is normal size. The dimensions of the ascending aorta are normal. The inferior vena cava was not well visualized. Pericardium/ Pleura There is no pericardial effusion. There is no pleural effusion. MMode/2D Measurements & Calculations LVIDd: 6.0 cm LVOT diam: 2.4 cm LVIDs: 3.7 cm Ao root diam: 3.6 cm FS: 38.6 % asc Aorta Diam: 3.8 cm EPSS: 1.3 cm Ao Arch Diam (Prox Trans): 3.1 cm IVSd: 0.93 cm LVPWd: 1.1 cm LV rosales. diameter/BSA (cm/m^2): 2.3 LV sys. diameter/BSA (cm/m^2): 1.4 LA A2 area: 28.0 cm2 RA long axis: 5.1 cm LA A4 area: 25.5 cm2 RA area: 18.0 cm2 LA length (vol): 5.7 cm RA vol: 54.1 ml LA vol: 106.3 ml RA : 20.2 ml/m2 LA vol index: 39.8 ml/m2 RVD1 (basal): 3.7 cm RVD2 (mid): 3.4 cm TAPSE: 2.3 cm Doppler Measurements & Calculations Ao V2 max: 157.7 cm/sec LVOT Max Preston: 135.8 cm/sec Ao V2 mean: 105.5 cm/sec LV V1 max P.4 mmHg Ao max P.9 mmHg LV V1 VTI: 27.8 cm Ao mean P.0 mmHg MARIANO(I,D): 3.9 cm2 Ao V2 VTI: 32.5 cm MARIANO(V,D): 4.0 cm2 sev ratio: 0.86 MARIANO indexed to BSA (cm^2/m^2): 1.5 MV E max preston: 88.4 cm/sec PA V2 max: 106.9 cm/sec MV A max preston: 85.3 cm/sec PA V2 mean: 82.4 cm/sec MV E/A: 1.0 PA mean P.9 mmHg Med Peak E' Preston: 7.2 cm/sec PA pr(Accel): 36.2 mmHg E/E' med: 12.2 Lat Peak E' Preston: 8.8 cm/sec E/E' lat: 10.1 E/e' average: 11.1 MV dec time: 0.22 sec SV(LVOT): 128.2 ml Reading Physician:02:01 PM
== END ==
PROVIDERS: PCP Family Medicine; Referring Provider Family Medicine; Visit Provider Family Medicine
DX: I34.0 Nonrheumatic mitral (valve) insufficiency (principal); R06.09 Other forms of dyspnea
CPT/HCPCS: 93306

== ENCOUNTER 2022-11-13 08:14 | Emergency (ER) | payer OTHER, SELFPAY ==
[2022-09-15 11:10] VITALS: BMI 46.0
[2022-11-13] VITALS (7 sets, daily range): BP systolic 121–184; BP diastolic 76–93; PULSE 59–72; RESP 12–18; TEMP 36.9; O2SAT 96–98; BMI 46.0
[2022-11-13 09:29] LABS: Add Manual Diff / Slide Review NO; Basophils Absolute Auto 100 /uL (0-100); Basophils Percent Auto 0.8 % (0-2); Eosinophils Absolute Auto 100 /uL (0-450); Eosinophils Percent Auto 1.3 % (2-4); Hematocrit 42.3 % (41-53); Hemoglobin 14.5 g/dL (13.5-17.5); Lymphocytes Absolute Auto 1600 /uL (1100-4500); Lymphocytes Percent Auto 16.2 % (25-40); Mean Corpuscular HGB Conc 34.3 % (30-36); Mean Corpuscular Hemoglobin 30.4 PG (26-34); Mean Corpuscular Volume 88.6 fL (80-100); Monocytes Absolute Auto 700 /uL (0-900); Monocytes Percent Auto 7.7 % (3-14); Neutrophils Absolute Auto 7200 /uL (1500-7000); Platelet Count 283 X10^3/uL (150-400); Red Blood Cell Count 4.77 X10^6/uL (4.5-5.9); Red Cell Distribution Width 13.2 % (11.6-14.8); White Blood Cell Count 9.7 X10^3/uL (4.5-11.0)
[2022-11-13 09:39] LABS: Alanine Aminotransferase 32 IU/L (<50); Albumin 4.5 g/dL (3.5-5.0); Albumin Globulin Ratio 1.2 (1.0-2.8); Alkaline Phosphatase 79 U/L (38-126); Aspartate Aminotransferase 28 IU/L (17-59); BUN Creatinine Ratio 20.8 (6-22); Bilirubin Total 0.5 mg/dL (0.2-1.3); Blood Urea Nitrogen 21 mg/dL (9-20); Calcium 9.7 mg/dL (8.4-10.2); Carbon Dioxide 22 mmol/L (22-32); Chloride 102 mmol/L (98-107); Estimated Glomerular Filt Rate > 60 mL/min (>60); Globulin 3.8 g/dL (1.7-4.1); Glucose 150 mg/dL (70-100); HEMOLYSIS 23 (0-50); Lipase 156 U/L (23-300); Sodium 138 mmol/L (137-145); Total Protein 8.3 g/dL (6.3-8.2)
--- NOTE | 2022-11-13 11:11 | ED_ITS ---
HPI - Abdominal Pain General Chief Complaint: Abdominal Pain Stated Complaint: sent by [facility] poss diverticulitus Time Seen by Provider: 11/13/22 11:10 Source: patient Mode of arrival: Ambulatory History of Present Illness HPI narrative: Patient 61-year-old male history of GERD type 2 diabetes hypertension NARCISO presenting today with abdominal pain and diarrhea. He reports that for the last 8-9 days he thinks that he ate some bad seafood he is had about 3 episodes of diarrhea daily however the last couple days and even this morning he had formed fairly normal bowel movement. He denies any blood nausea or vomiting. He reports that he is having some abdominal discomfort. He has had 2 hernia repairs with mesh failure and cholecystectomy. Denies fever or chills. Sent here from the walk-in clinic for further evaluation. Related Data Home Medications Medication Instructions Recorded Confirmed metformin 500 mg tablet,extended 1,000 mg PO BID 09/15/22 10/13/22 release 24 hr prazosin 2 mg capsule mg 09/15/22 10/13/22 Previous Rx's Medication Instructions Recorded bisoprolol fumarate 5 mg tablet See Rx Instructions .Route 09/19/22 .COMPLEX #90 tabs losartan 100 1 tab PO DAILY #90 tabs 09/19/22 mg-hydrochlorothiazide 25 mg tablet empagliflozin 25 mg tablet 25 mg PO DAILY #90 tabs 10/13/22 Allergies Allergy/AdvReac Type Severity Reaction Status Date / Time amoxicillin [AMOXICILLIN] Allergy Intermediate RASH ALL Verified 11/13/22 08:28 OVER BODY hydrocodone [HYDROCODONE] AdvReac Intermediate VOMITING Verified 11/13/22 08:28 FOR A LONG TIME AND MADE ME SICKER THAN A DOG. oxycodone [OXYCODONE] AdvReac Intermediate VOMITING Verified 11/13/22 08:28 FOR A LONG TIME AND MADE ME SICKER THAN DOG Review of Systems Review of Systems ROS Unobtainable: All systems reviewed & are unremarkable except as noted in HPI and below Patient History Medical History Chickenpox Costochondritis, acute WILCOX (dyspnea on exertion) Foreign body (FB) in soft tissue Hand pain, left Headache Herpes (1994) History of flexible sigmoidoscopy Hypertension (2007) Hypertriglyceridemia without hypercholesterolemia Low HDL (under 40) Morbid obesity with BMI of 45.0-49.9, adult [place] Obstructive sleep apnea Plantar fasciitis of left foot Plantar fasciitis, bilateral Pressure in left side of chest Rubella Type 2 diabetes mellitus with peripheral neuropathy Surgical History Status post hernia repair (~2010) Status post laparoscopic cholecystectomy (09/1991) Family History Brother Malignant melanoma, unspecified site Brother History of skin cancer Father Type 2 diabetes mellitus without complication, unspecified group home insulin use status Coronary artery disease involving grindstone coronary artery of grindstone heart without angina pectoris Mother History of lupus Social History household members: spouse Smoking Status: Never smoker second hand exposure: No alcohol intake: current substance use type: does not use Smoking Status: Never smoker alcohol intake frequency: 0-2 drinks per day Substance Use Type: does not use Exam Initial Vital Signs Initial Vital Signs: Vital Signs Temperature 98.4 F 11/13/22 08:34 Pulse Rate 72 11/13/22 08:34 Respiratory Rate 18 11/13/22 08:34 Blood Pressure 121/90 11/13/22 08:34 Pulse Oximetry 97 11/13/22 08:34 Oxygen Delivery Method Room Air 11/13/22 08:34 GENERAL: Alert pleasant well-appearing 61-year-old male and in no acute distress. HEENT: Head atraumatic,EOMI, pupils reactive, face symmetric, moist mucous membranes CARDIOVASCULAR: Regular rate and rhythm without murmurs, rubs or gallops. RESPIRATORY: Breath sounds equal bilaterally, no wheezes rales or rhonchi. ABDOMEN: Soft, mild left lower quadrant periumbilical pain no guarding no rebound : No CVA tenderness EXTREMITIES: Normal range of motion, no clubbing or edema. Neurovascularly intact NEUROLOGICAL: Alert and oriented x4. SKIN: Warm, dry, no laceration, no petechiae, no rashes or lesions. Course Orders Ordered: ED Orders 11/13/22 11:17 CT abdomen pelvis w con Stat Discontinued Medications Ondansetron HCl (Ondansetron 4 Mg Odt) 4 mg PO NOW PRN PRN Reason: Nausea And Vomiting Ondansetron HCl (Ondansetron 4 Mg/2 Ml Inj) 4 mg IV NOW PRN PRN Reason: Nausea And Vomiting Vital Signs Vital signs: Vital Signs - 8 hr 11/13/22 11:30 11/13/22 11:31 11/13/22 11:31 Pulse Rate 59 L 59 L Respiratory Rate Blood Pressure 184/93 H Pulse Oximetry 97 97 Oxygen Delivery Method 11/13/22 12:05 11/13/22 12:30 11/13/22 13:16 Pulse Rate 62 59 L 59 L Respiratory Rate 12 Blood Pressure 146/87 H Pulse Oximetry 98 96 97 Oxygen Delivery Method Room Air MDM - Abdominal Pain Lab Data 11/13/22 09:15 11/13/22 09:15 Labs: Lab Results 11/13/22 11/13/22 Range/Units 09:15 09:15 WBC 9.7 (4.5-11.0) X10^3/uL RBC 4.77 (4.5-5.9) X10^6/uL Hgb 14.5 (13.5-17.5) g/dL Hct 42.3 (41-53) % MCV 88.6 (80-100) fL MCH 30.4 (26-34) PG MCHC 34.3 (30-36) % RDW 13.2 (11.6-14.8) % Plt Count 283 (150-400) X10^3/uL Neut % (Auto) 74.0 (50-75) % Lymph % (Auto) 16.2 L (25-40) % [place] % (Auto) 7.7 (3-14) % Eos % (Auto) 1.3 L (2-4) % Baso % (Auto) 0.8 (0-2) % Neut # (Auto) 7200 H (5648-3050) /uL Lymph # (Auto) 1600 (6438-2572) /uL [place] # (Auto) 700 (0-900) /uL Eos # (Auto) 100 (0-450) /uL Baso # (Auto) 100 (0-100) /uL Sodium 138 (137-145) mmol/L Potassium 4.0 (3.4-5.1) mmol/L Chloride 102 (98-107) mmol/L Carbon Dioxide 22 (22-32) mmol/L BUN 21 H (9-20) mg/dL Creatinine 1.01 (0.66-1.25) mg/dL Estimated GFR > 60 (>60) mL/min BUN/Creatinine Ratio 20.8 (6-22) Glucose 150 H (70-100) mg/dL Calcium 9.7 (8.4-10.2) mg/dL Total Bilirubin 0.5 (0.2-1.3) mg/dL AST 28 (17-59) IU/L ALT 32 (<50) IU/L Alkaline Phosphatase 79 (38-126) U/L Total Protein 8.3 H (6.3-8.2) g/dL Albumin 4.5 (3.5-5.0) g/dL Globulin 3.8 (1.7-4.1) g/dL Albumin/Globulin Ratio 1.2 (1.0-2.8) Lipase 156 (23-300) U/L Point of care testing: Urine Dip Bedside Urine Glucose 1000 mg/dl Bedside Urine Bilirubin - Negative Bedside Urine Ketone - Negative Urine Specific [place] 1.020 Bedside Urine Occult Blood - Negative Bedside Urine pH 5.5 Bedside Urine Protein - Negative Bedside Urine Urobilinogen - Negative Bedside Urine Nitrite - Negative Bedside Urine Leukocytes - Negative Esterase Imaging Data CT scan - abdomen/pelvis: Radiologist's Impression: PROCEDURE:? CT ABDOMEN PELVIS W CON ? INDICATIONS:? Abdominal pain x 9 days.? History of hernia repair surgeries. ? TECHNIQUE:? After the administration of oral and IV contrast, axial sections were acquired from the lung bases to the pubic symphysis.? Coronal and sagittal reformats were performed.? For radiation dose reduction, the following was used:? automated exposure control, adjustment of mA and/or kV according to patient size. ? COMPARISON:? None. ? FINDINGS:? Image quality:? Excellent.? ? Lung bases:? Unremarkable.? ? Heart:? No significant findings. ? ? ABDOMEN: Liver:? Normal size.? Imbxxymj-fm-wvhkyl hepatic steatosis.? ? Gallbladder:? Surgically removed.? ? Biliary ducts:? Unremarkable.? ? Pancreas:? Unremarkable.? ? Spleen:? Unremarkable.? ? Adrenal Glands:? Unremarkable.? ? Kidneys and Ureters:? Normal size and symmetrical enhancement.? Bilateral nonobstructive renal calculi.? There are several simple appearing parapelvic renal cysts measuring up to 5.6 cm.? ? ? Stomach and Bowel:? Stomach, small bowel loops, and colon are unremarkable.? Normal appendix. Peritoneum:? No abnormal intraperitoneal fluid.? No free air.? ? Ventral Wall: ? There are small residual fat periumbilical ventral hernias.? Mild fat stranding in the periumbilical area.? Abdominal Nodes:? No retroperitoneal or mesenteric adenopathy by size criteria.? Vessels:? Aorta and inferior vena cava are normal in size.? ? PELVIS: Pelvic Organs:? Unremarkable.? ? Bladder:? Unremarkable.? ? Pelvic Nodes: No enlarged lymph nodes.? Miscellaneous: No inguinal hernias are seen. ? ? ? Bones:? There is grade 1 anterolisthesis of L5 on S1.? Bilateral L5 pars defects. ? ? IMPRESSION:? ? 1. Tmiglpvp-[id number] hepatic steatosis. ? 2. Bilateral nonobstructive renal calculi.? No definitive hydronephrosis.? There are several left parapelvic renal cysts measuring up to 5.6 cm. ? 3. Small residual periumbilical ventral hernias.? There is fat mild stranding around the umbilicus. No fluid collections to suggest abscess.? Dictated by: Salty Marie M.D. on 11/13/2022 at 12:23? ECG Data Interpretation: Sinus rhythm rate 50 CT interval 176 QRS [address] changes no T-wave in versions MDM Narrative Medical decision making narrative: Patient 61-year-old male who has had gastroenteritis like symptoms now having some mild abdominal pain. Diarrhea has slowed and now having some formed bowel movements. Blood work is overall reassuring without evidence of significant dehydration. CT does not show any abnormality no evidence of obstruction diverticulitis he is found to have renal stones without ureteral stones. Patient's pain has been well controlled. This time I think pain is likely secondary to from the recent gastroenteritis. Supportive care only. Discharge Plan Departure Patient Disposition: Home Clinical Impression: Gastroenteritis Instructions: DI for Viral Gastroenteritis -- Adult Activity Restrictions/Additional Instructions: *You have been diagnosed with gastroenteritis *What to do: At this time increase diet and liquids as tolerated. Will take time for your stomach to recover from that illness who just had it should start to feel better soon *Continue to take medications as directed Tylenol 650 mg every 4-6 hours Motrin 600 mg every 6-8 hours *Follow up with your primary care provider in 2-3 days or call [phone] *Return to ER if you should have increasing pain persistent vomiting diarrhea or any new, worsening or concerning symptoms Prescriptions: No Action bisoprolol fumarate 5 mg tablet See Rx Instructions .ROUTE .COMPLEX Qty: 90 3RF Dose Instruction: TAKE 1 TABLET BY MOUTH EVERY DAY Rx Instructions: TAKE 1 TABLET BY MOUTH EVERY DAY losartan-hydrochlorothiazide 100-25 mg tablet 1 tab PO DAILY Qty: 90 3RF empagliflozin 25 mg tablet 25 mg PO DAILY Qty: 90 1RF metformin 500 mg tablet extended release 24 hr 1,000 mg PO BID prazosin 2 mg capsule Referrals: Blayne Lopez DO [Primary Care Provider] - Stand Alone Forms: Patient Portal/API
--- NOTE | 2022-11-13 11:17 | DI.CT.S_ITS ---
PROCEDURE: CT ABDOMEN PELVIS W CON INDICATIONS: Abdominal pain x 9 days. History of hernia repair surgeries. TECHNIQUE: After the administration of oral and IV contrast, axial sections were acquired from the lung bases to the pubic symphysis. Coronal and sagittal reformats were performed. For radiation dose reduction, the following was used: automated exposure control, adjustment of mA and/or kV according to patient size. COMPARISON: None. FINDINGS: Image quality: Excellent. Lung bases: Unremarkable. Heart: No significant findings. ABDOMEN: Liver: Normal size. [place]owsrift-mi-ivjefs hepatic steatosis. Gallbladder: Surgically removed. Biliary ducts: Unremarkable. Pancreas: Unremarkable. Spleen: Unremarkable. Adrenal Glands: Unremarkable. Kidneys and Ureters: Normal size and symmetrical enhancement. Bilateral nonobstructive renal calculi. There are several simple appearing parapelvic renal cysts measuring up to 5.6 cm. Stomach and Bowel: Stomach, small bowel loops, and colon are unremarkable. Normal appendix. Peritoneum: No abnormal intraperitoneal fluid. No free air. Ventral Wall: There are small residual fat periumbilical ventral hernias. Mild fat stranding in the periumbilical area. Abdominal Nodes: No retroperitoneal or mesenteric adenopathy by size criteria. Vessels: Aorta and inferior vena cava are normal in size. PELVIS: Pelvic Organs: Unremarkable. Bladder: Unremarkable. Pelvic Nodes: No enlarged lymph nodes. Miscellaneous: No inguinal hernias are seen. Bones: There is grade 1 anterolisthesis of L5 on S1. Bilateral L5 pars defects. IMPRESSION: 1. Kadijqag-mg-jotklp hepatic steatosis. 2. Bilateral nonobstructive renal calculi. No definitive hydronephrosis. There are several left parapelvic renal cysts measuring up to 5.6 cm. 3. Small residual periumbilical ventral hernias. There is fat mild stranding around the umbilicus. No fluid collections to suggest abscess. Dictated by: Salty Marie M.D. on 11/13/2022 at 12:23 Approved by: Salty Marie M.D. on 11/13/2022 at 12:31
== END 2022-11-13 13:17 | disposition home or self-care (01) ==
PROVIDERS: Emergency Provider Emergency Medicine; PCP Family Medicine
DX: K52.9 Noninfective gastroenteritis and colitis, unspecified (principal); R10.9 Unspecified abdominal pain
CPT/HCPCS: 36415; 74177; 80053; 81003; 83690; 85025; 93005; 99283; 99284; Q9967

== ENCOUNTER → 2023-04-14 09:17 | Outpatient (CLI) | payer OTHER, SELFPAY ==
[2022-09-15 11:10] VITALS: BMI 46.0
[2023-04-14 10:04] LABS: Add Manual Diff / Slide Review NO; Basophils Absolute Auto 0 /uL (0-100); Basophils Percent Auto 0.7 % (0-2); Eosinophils Absolute Auto 200 /uL (0-450); Hematocrit 42.4 % (41-53); Hemoglobin 14.6 g/dL (13.5-17.5); Lymphocytes Absolute Auto 1600 /uL (1100-4500); Lymphocytes Percent Auto 22.8 % (25-40); Mean Corpuscular HGB Conc 34.4 % (30-36); Mean Corpuscular Hemoglobin 30.5 PG (26-34); Mean Corpuscular Volume 88.7 fL (80-100); Monocytes Absolute Auto 700 /uL (0-900); Monocytes Percent Auto 10.1 % (3-14); Neutrophils Absolute Auto 4400 /uL (1500-7000); Neutrophils Percent Auto 63.4 % (50-75); Platelet Count 255 X10^3/uL (150-400); Red Blood Cell Count 4.78 X10^6/uL (4.5-5.9); Red Cell Distribution Width 13.7 % (11.6-14.8); White Blood Cell Count 6.9 X10^3/uL (4.5-11.0)
[2023-04-14 10:12] LABS: Hemoglobin A1C% w Est Avg Glu 8.1 % (4.0-6.0)
[2023-04-14 10:21] LABS: Alanine Aminotransferase 23 IU/L (<50); Albumin 4.3 g/dL (3.5-5.0); Albumin Globulin Ratio 1.4 (1.0-2.8); Alkaline Phosphatase 71 U/L (38-126); Aspartate Aminotransferase 26 IU/L (17-59); BUN Creatinine Ratio 21.9 (6-22); Bilirubin Total 0.9 mg/dL (0.2-1.3); Blood Urea Nitrogen 21 mg/dL (9-20); Calcium 10.2 mg/dL (8.4-10.2); Carbon Dioxide 25 mmol/L (22-32); Chloride 100 mmol/L (98-107); Cholesterol 192 mg/dL (140-199); Estimated Glomerular Filt Rate > 60 mL/min (>60); Globulin 3.1 g/dL (1.7-4.1); Glucose 158 mg/dL (80-110); HDL Cholesterol 32 mg/dL (40-60); HEMOLYSIS < 15 (0-50); LDL Cholesterol Calculated 121 mg/dL (<100); Potassium 4.2 mmol/L (3.4-5.1); Sodium 136 mmol/L (137-145); Total Protein 7.4 g/dL (6.3-8.2); Triglycerides 197 mg/dL (35-150)
[2023-04-14 10:22] LABS: Creatinine Urine Random 83.4 mg/dL
[2023-04-14 10:27] LABS: Microalbumi Creatinin Ratio Ur 9.5 ug/mg CR (<30); Microalbumin Urine Random 0.8 mg/dL (0-1.6)
[2023-04-14 10:51] LABS: Prostate Specific Antigen 0.415 ng/mL (0.10-4.00)
== END ==
PROVIDERS: PCP Family Medicine; Referring Provider Family Medicine; Visit Provider Family Medicine
DX: Z12.5 Encounter for screening for malignant neoplasm of prostate (principal); E78.1 Pure hyperglyceridemia; E11.42 Type 2 diabetes mellitus with diabetic polyneuropathy; I10 Essential (primary) hypertension; K21.9 Gastro-esophageal reflux disease without esophagitis
CPT/HCPCS: 36415; 80053; 80061; 82043; 82570; 83036; 84153; 85025

== ENCOUNTER → 2023-08-27 07:50 | Outpatient (CLI) | payer OTHER, SELFPAY ==
[2022-09-15 11:10] VITALS: BMI 46.0
[2023-08-27 08:42] LABS: Influenza A - CEPHEID Flu A NEGATIVE (NEGATIVE); Influenza B - CEPHEID Flu B NEGATIVE (NEGATIVE); Respiratory Syncytial Virus Negative (Negative)
[2023-08-27 08:49] LABS: COVID-19 CEPHEID 4-PLEX PCR Negative (Negative)
== END ==
PROVIDERS: PCP Family Medicine; Visit Provider Nurse Practitioner Family
DX: R06.02 Shortness of breath (principal); R05.9 Cough, unspecified
CPT/HCPCS: 0241U

== ENCOUNTER 2024-05-04 07:45 | Emergency (ER) | payer OTHER, SELFPAY ==
[2022-09-15 11:10] VITALS: BMI 46.0
--- NOTE | 2024-05-04 07:50 | ED_ITS ---
HPI - Abdominal Pain General Chief Complaint: Back Pain/Injury Stated Complaint: kidney stones/pain at a 10 Time Seen by Provider: 05/04/24 07:48 Source: patient, RN notes reviewed and old records reviewed Mode of arrival: Ambulatory Limitations: no limitations History of Present Illness HPI narrative: 63-year-old male history of diabetes, hypertension, dyslipidemia and prior kidney stones who presents with complaint of right flank pain radiating down towards groin. Patient states feels very similar to prior kidney stones although bit more intense than past. Symptoms started about 4:00 a.m. this morning with sudden onset. Denies any fevers or chills. States he has had some nausea vomiting since pain started. Sort of waxing and waning in intensity feels very similar to priors. Patient states no new issues with bowel movements. Denies any hematuria, dysuria, urgency or frequency. Patient has had prior cholecystectomy, hernia repair with mesh. Has not required intervention for his kidney stones in the past. No tobacco, alcohol or recreational drugs. States he was allergic to amoxicillin does not tolerate oral narcotics well that they make him vomit. Related Data Previous Rx's Medication Instructions Recorded benzonatate 200 mg capsule 200 mg PO BID PRN cough #28 caps 08/27/23 doxycycline hyclate 100 mg capsule 100 mg PO BID #14 caps 08/27/23 fluticasone propionate 50 1 spray intranasal Q12H #16 grams 08/27/23 mcg/actuation nasal spray,suspension (Flonase Allergy Relief) bisoprolol fumarate 5 mg tablet 5 mg PO DAILY #90 tabs 04/08/24 empagliflozin 25 mg tablet 25 mg PO DAILY #90 tabs 04/08/24 (Jardiance) losartan 100 1 tab PO DAILY #90 tabs 04/08/24 mg-hydrochlorothiazide 25 mg tablet metformin 500 mg tablet,extended 1,000 mg (2 x 500 mg) PO BID #180 04/08/24 release 24 hr tabs meloxicam 7.5 mg tablet 7.5 mg PO BID PRN pain #10 tabs 05/04/24 ondansetron 4 mg disintegrating 4 mg PO Q6H PRN nausea and 05/04/24 tablet vomiting #10 tabs tamsulosin 0.4 mg capsule (Flomax) 0.4 mg PO DAILY #7 caps 05/04/24 Allergies Allergy/AdvReac Type Severity Reaction Status Date / Time amoxicillin [AMOXICILLIN] Allergy Intermediate RASH ALL Verified 08/31/23 09:07 OVER BODY hydrocodone [HYDROCODONE] AdvReac Intermediate VOMITING Verified 08/31/23 09:07 FOR A LONG TIME AND MADE ME SICKER THAN A DOG. oxycodone [OXYCODONE] AdvReac Intermediate VOMITING Verified 08/31/23 09:07 FOR A LONG TIME AND MADE ME SICKER THAN DOG Review of Systems Review of Systems ROS Unobtainable: All systems reviewed & are unremarkable except as noted in HPI and below Patient History Medical History Costochondritis, acute WILCOX (dyspnea on exertion) Foreign body (FB) in soft tissue Headache Pressure in left side of chest Hand pain, left Low HDL (under 40) Hypertriglyceridemia without hypercholesterolemia Plantar fasciitis, bilateral Plantar fasciitis of left foot Type 2 diabetes mellitus with peripheral neuropathy Morbid obesity with BMI of 45.0-49.9, adult History of flexible sigmoidoscopy Obstructive sleep apnea Chickenpox Mumps Rubella Hypertension (2007) Herpes (1994) Surgical History Status post laparoscopic cholecystectomy (09/1991) Status post hernia repair (~2010) Family History Brother Malignant melanoma, unspecified site Brother History of skin cancer Father Type 2 diabetes mellitus without complication, unspecified director long term care insulin use status Coronary artery disease involving alturas coronary artery of alturas heart without angina pectoris Mother History of lupus Social History household members: spouse Smoking Status: Never smoker second hand exposure: No alcohol intake: current substance use type: does not use Smoking Status: Never smoker alcohol intake frequency: 0-2 drinks per day Substance Use Type: does not use Exam Narrative Exam Narrative: GENERAL: Alert and oriented x three, male in moderate distress. HEENT: Head normocephalic, atraumatic, EOMI, pupils reactive, face symmetric, moist mucous membranes NECK: Supple, full range of motion CARDIOVASCULAR: Regular rate and rhythm without murmurs, rubs or gallops. RESPIRATORY: Breath sounds equal bilaterally, no wheezes rales or rhonchi. ABDOMEN: Soft, nontender. Normoactive bowel sounds all 4 quadrants. No guarding or rebound, rigidity, no mass : No CVA tenderness bilaterally EXTREMITIES: Normal range of motion, no clubbing or edema. Neurovascularly intact. Ambulating without issue. NEUROLOGICAL: Cranial nerves II through XII grossly intact. Moving all extremities SKIN: Warm, dry, no petechiae, no rashes or lesions. Initial Vital Signs Initial Vital Signs: Vital Signs Pulse Oximetry 96 05/04/24 07:52 Oxygen Delivery Method Room Air 05/04/24 07:52 Course Orders Ordered: ED Orders 05/04/24 07:50 Urine Microscopic Stat 05/04/24 07:53 CT kidney ureter bladder (KUB) Stat 05/04/24 08:05 CBC Auto Diff [Complete Blood Count AUTO DIFF] Stat CMP [Comprehensive Metabolic Panel] Stat Lipase Stat Discontinued Medications Ketorolac Tromethamine (Ketorolac 30 Mg/Ml Vial) 15 mg IV NOW ONE Stop: 05/04/24 07:54 Last Admin: 05/04/24 08:12 Dose: 15 mg Documented By: MAITE Ondansetron HCl (Ondansetron 4 Mg/2 Ml Inj) 4 mg IV NOW ONE Stop: 05/04/24 07:54 Last Admin: 05/04/24 08:12 Dose: 4 mg Documented By: MAITE Tamsulosin HCl (Tamsulosin 0.4 Mg Capsule) 0.4 mg PO NOW ONE Stop: 05/04/24 09:40 Last Admin: 05/04/24 09:57 Dose: 0.4 mg Documented By: MAITE Vital Signs Vital signs: Vital Signs - 8 hr 05/04/24 07:52 05/04/24 07:53 05/04/24 07:53 Temperature Pulse Rate 74 Respiratory Rate Blood Pressure 191/103 H Pulse Oximetry 96 Oxygen Delivery Method Room Air 05/04/24 07:56 05/04/24 10:03 Temperature 97.9 F Pulse Rate 73 77 Respiratory Rate 16 18 Blood Pressure 191/101 H 135/85 Pulse Oximetry 96 97 Oxygen Delivery Method Room Air Room Air MDM - Abdominal Pain Lab Data 05/04/24 08:05 05/04/24 08:05 Labs: Lab Results 05/04/24 05/04/24 Range/Units 07:50 08:05 WBC 11.2 H (4.5-11.0) X10^3/uL RBC 4.64 (4.5-5.9) X10^6/uL Hgb 14.3 (13.5-17.5) g/dL Hct 41.6 (41-53) % MCV 89.7 (80-100) fL MCH 30.8 (26-34) PG MCHC 34.4 (30-36) % RDW 13.4 (11.6-14.8) % Plt Count 245 (150-400) X10^3/uL Neut % (Auto) 85.6 H (50-75) % Lymph % (Auto) 8.3 L (25-40) % Long % (Auto) 5.2 (3-14) % Eos % (Auto) 0.2 L (2-4) % Baso % (Auto) 0.7 (0-2) % Neut # (Auto) 9600 H (8631-4392) /uL Lymph # (Auto) 900 L (6963-0442) /uL Long # (Auto) 600 (0-900) /uL Eos # (Auto) 0 (0-450) /uL Baso # (Auto) 100 (0-100) /uL Sodium 136 L (137-145) mmol/L Potassium 4.2 (3.4-5.1) mmol/L Chloride 104 (98-107) mmol/L Carbon Dioxide 20 L (22-32) mmol/L BUN 24 H (9-20) mg/dL Creatinine 1.22 (0.66-1.25) mg/dL Estimated GFR > 60 (>60) mL/min BUN/Creatinine Ratio 19.7 (6-22) Glucose 345 H (80-110) mg/dL Calcium 9.3 (8.4-10.2) mg/dL Total Bilirubin 0.7 (0.2-1.3) mg/dL AST 40 (17-59) IU/L ALT 39 (<50) IU/L Alkaline Phosphatase 102 (38-126) U/L Total Protein 7.6 (6.3-8.2) g/dL Albumin 4.5 (3.5-5.0) g/dL Globulin 3.1 (1.7-4.1) g/dL Albumin/Globulin Ratio 1.5 (1.0-2.8) Lipase 112 (23-300) U/L Urine RBC 0-1/hpf (0-5/HPF) Urine WBC None seen (0-5/HPF) Ur Squamous Epith Cells None seen (0-5/HPF) Urine Bacteria None seen (None) Ur Culture Indicated? Cult not indicated Vol Urine Centrifuged 10ml (spun) Point of care testing: Urine Dip Bedside Urine Glucose 1000 mg/dl Bedside Urine Bilirubin - Negative Bedside Urine Ketone +/- 5 Urine Specific [place] 1.010 Bedside Urine Occult Blood ++ Bedside Urine pH 5.5 Bedside Urine Protein - Negative Bedside Urine Urobilinogen - Negative Bedside Urine Nitrite - Negative Bedside Urine Leukocytes - Negative Esterase Imaging Data CT scan - abdomen/pelvis: Radiologist's Impression: Close Abdomen/Pelvis CT (Signed) [place] - 05/04/24 Launch?Image [address] [address] [address] Scan Report Signed Patient: Bryan Kim MR#: [id number] : 1960 Acct:[id number] Age/Sex: 63 / M Date of Service: 05/04/24 Loc: ED Accession Number: [id number] Procedure: CT kidney ureter bladder (KUB) Ordering Provider: Brittany Calhoun D.O. PROCEDURE: CT KIDNEY URETER BLADDER (KUB) INDICATIONS: right flank pain, hx kidney stones TECHNIQUE: Axial sections were acquired from the lung bases to the pubic symphysis. Coronal and sagittal reformats were performed. For radiation dose reduction, the following was used: automated exposure control, adjustment of mA and/or kV according to patient size. COMPARISON: [facility], CT, CT ABDOMEN PELVIS W CON, 11/13/2022, 12:01. FINDINGS: Image quality: Diagnostic. Lower Chest: No significant findings. URINARY: Right Kidney: Nonobstructing right-sided kidney stones are seen that measure 2 5 mm and 350 Hounsfield units. There is mild right-sided hydronephrosis. Right-sided perinephric fat stranding is seen. Right Ureter: Mild right-sided hydroureter is seen. Within the distal right ureter, there is obstructing stone seen as on series 2, image 138 and on series 4, image 89, measuring 5 mm and 440 Hounsfield units. Left Kidney: There is a 3 mm nonobstructing left-sided kidney stone. There are numerous left-sided cysts seen. No hydronephrosis is seen. Left Ureter: No hydroureter. Bladder: Normal wall thickness. No stones. ABDOMEN: Liver: No contour-deforming solid mass. Diffuse fatty liver infiltration is noted. Gallbladder: Removed. Biliary ducts: No biliary dilation. Pancreas: No ductal dilation. Spleen: Size is within normal limits. Adrenal Glands: No adrenal nodules. Stomach and Bowel: Normal colonic caliber, without significant wall thickening. No dilated loops of small bowel are seen. Peritoneum: No abnormal intraperitoneal fluid. No free air. Ventral Wall: A uypc-ro-nezluppu recurrent periumbilical hernia is seen, containing fat. Prior hernia repair change can be seen, with mesh. Abdominal Nodes: No enlarged retroperitoneal or mesenteric lymph nodes. Vessels: Aorta and inferior vena cava are normal in size. Atherosclerotic calcification is noted. PELVIS: Pelvic Organs: Unremarkable. Pelvic Nodes: Unremarkable. Miscellaneous: Fiug-dg-doswdxdz bilateral fat containing inguinal hernias are seen. Bones: Bilateral L5 pars defects are seen, with grade 1 anterolisthesis. Focal L5-S1 degenerative change is seen. IMPRESSION: 5 mm obstructing stone within the right mid ureter, with associated right-sided hydroureter, hydronephrosis, and perinephric fat stranding. Bilateral nonobstructing kidney stones are seen. Additional findings: Fatty liver infiltration Cholecystectomy Significant left kidney cysts Xucw-md-tasopcyc fat containing periumbilical hernia Prior periumbilical hernia repair, with mesh Bilateral L5 pars defects, with grade 1 L5-S1 anterolisthesis Focal L5-S1 degenerative change Wsdi-di-ybipagse bilateral fat containing inguinal hernias Dictated by: [place] Perry M.D. on 05/04/2024 at 8:19 Approved by: [place] Perry M.D. on 05/04/2024 at 8:25 MDM Narrative Medical decision making narrative: 63-year-old male history of kidney stones with very similar symptoms per patient. Urine does show blood initial dip. Patient notes little bit more intense than passed kidney stones. Labs white blood cell count 11.2 hemoglobin of 14 platelets of 245, chemistry shows sodium 136 CO2 of 20 BUN 24 creatinine 1.22 patient's range between 0.96 and 1 in the past, glucose is 345. LFTs are negative. Lipase is normal. Urine point of care urine shows blood, micro shows 1 red cell no white cells no squamous no bacteria. CT KUB shows 5 mm obstructing stone right mid ureter with associated right-sided hydro, hydronephrosis and perinephric fat stranding bilateral nonobstructing kidney stones patient does have multiple left-sided cyst. Diffuse fatty liver infiltration noted. Xvyy-ng-dvupybsj bilateral fat containing has a bilateral L5 pars defects with grade 1 anterolisthesis focal L5-S1 degenerative changes seen. Reviewed changes with patient from his CT including incidental findings and need for follow-up. Would recommend patient have repeat imaging of the cyst on his left side to make sure no changes. Patient expressed his understanding. Patient received Toradol and Zofran. On recheck patients pain is improved. He is much more comfortable. We will give a dose of oral Flomax here and prescriptions for medication for management. Contact for Urology given if persistent symptoms but controlled and discussed return precautions. Reviewed patient's incidental findings and need for follow- up. Discharge Plan Departure Patient Disposition: Home Clinical Impression: Kidney stone on right side, Cyst of left kidney Instructions: DI for Kidney Stones Activity Restrictions/Additional Instructions: You have a 5 mm kidney stone on the right side, this will likely pass but if your symptoms are not improving please follow up with Urology. Contacts included below. You are also noted to have several cyst on the left kidney, please follow this up with your physician or the urologist. Take Flomax once daily until gone. You may take Zofran 1 tablet every 6 hours as needed for nausea. You can take acetaminophen up to a 1000 mg every 6 hours and/or meloxicam 1 tablet every 12 hours as needed. Do not take ibuprofen or other NSAIDs with meloxicam. [facility] [place] Please return for fevers, new or worsening abdominal back or flank pain, passing out, lightheadedness or persistent vomiting, a little bit of a urinate or other new or concerning changes. Prescriptions: New tamsulosin [Flomax] 0.4 mg capsule 0.4 mg PO DAILY Qty: 7 0RF meloxicam 7.5 mg tablet 7.5 mg PO BID PRN (Reason: pain) Qty: 10 0RF ondansetron 4 mg tablet,disintegrating 4 mg PO Q6H PRN (Reason: nausea and vomiting) Qty: 10 0RF No Action doxycycline hyclate 100 mg capsule 100 mg PO BID Qty: 14 0RF fluticasone propionate [Flonase Allergy Relief] 50 mcg/actuation spray,suspension 1 spray intranasal Q12H Qty: 16 0RF Rx Instructions: administer into each nostril benzonatate 200 mg capsule 200 mg PO BID PRN (Reason: cough) Qty: 28 0RF bisoprolol fumarate 5 mg tablet 5 mg PO DAILY Qty: 90 1RF Jardiance 25 mg tablet 25 mg PO DAILY MDD 25mg Qty: 90 1RF Rx Instructions: Take one tablet by mouth daily losartan-hydrochlorothiazide 100-25 mg tablet 1 tab PO DAILY Qty: 90 1RF metformin 500 mg tablet extended release 24 hr 1,000 mg PO BID Qty: 180 1RF Referrals: Teo Smith DO [Physician] - Blayne Lopez DO [Primary Care Provider] - Stand Alone Forms: Patient Portal/API/Survey
[2024-05-04 07:52] VITALS: O2SAT 96
[2024-05-04 07:53] VITALS: BP 191/103; PULSE 74
--- NOTE | 2024-05-04 07:53 | DI.CT.S_ITS ---
PROCEDURE: CT KIDNEY URETER BLADDER (KUB) INDICATIONS: right flank pain, hx kidney stones TECHNIQUE: Axial sections were acquired from the lung bases to the pubic symphysis. Coronal and sagittal reformats were performed. For radiation dose reduction, the following was used: automated exposure control, adjustment of mA and/or kV according to patient size. COMPARISON: [facility], CT, CT ABDOMEN PELVIS W CON, 11/13/2022, 12:01. FINDINGS: Image quality: Diagnostic. Lower Chest: No significant findings. URINARY: Right Kidney: Nonobstructing right-sided kidney stones are seen that measure 2 5 mm and 350 Hounsfield units. There is mild right-sided hydronephrosis. Right-sided perinephric fat stranding is seen. Right Ureter: Mild right-sided hydroureter is seen. Within the distal right ureter, there is obstructing stone seen as on series 2, image 138 and on series 4, image 89, measuring 5 mm and 440 Hounsfield units. Left Kidney: There is a 3 mm nonobstructing left-sided kidney stone. There are numerous left-sided cysts seen. No hydronephrosis is seen. Left Ureter: No hydroureter. Bladder: Normal wall thickness. No stones. ABDOMEN: Liver: No contour-deforming solid mass. Diffuse fatty liver infiltration is noted. Gallbladder: Removed. Biliary ducts: No biliary dilation. Pancreas: No ductal dilation. Spleen: Size is within normal limits. Adrenal Glands: No adrenal nodules. Stomach and Bowel: Normal colonic caliber, without significant wall thickening. No dilated loops of small bowel are seen. Peritoneum: No abnormal intraperitoneal fluid. No free air. Ventral Wall: A dder-wf-rxarfnur recurrent periumbilical hernia is seen, containing fat. Prior hernia repair change can be seen, with mesh. Abdominal Nodes: No enlarged retroperitoneal or mesenteric lymph nodes. Vessels: Aorta and inferior vena cava are normal in size. Atherosclerotic calcification is noted. PELVIS: Pelvic Organs: Unremarkable. Pelvic Nodes: Unremarkable. Miscellaneous: Gcjq-jl-ipvzcznk bilateral fat containing inguinal hernias are seen. Bones: Bilateral L5 pars defects are seen, with grade 1 anterolisthesis. Focal L5-S1 degenerative change is seen. IMPRESSION: 5 mm obstructing stone within the right mid ureter, with associated right-sided hydroureter, hydronephrosis, and perinephric fat stranding. Bilateral nonobstructing kidney stones are seen. Additional findings: Fatty liver infiltration Cholecystectomy Significant left kidney cysts Frwz-dc-kdvjssln fat containing periumbilical hernia Prior periumbilical hernia repair, with mesh Bilateral L5 pars defects, with grade 1 L5-S1 anterolisthesis Focal L5-S1 degenerative change Chjs-xh-rndajpty bilateral fat containing inguinal hernias Dictated by: [place] Perry M.D. on 05/04/2024 at 8:19 Approved by: [place] Perry M.D. on 05/04/2024 at 8:25
[2024-05-04 07:56] VITALS: BP 191/101; PULSE 73; RESP 16; TEMP 36.6; O2SAT 96; BMI 47.5
[2024-05-04 08:06] LABS: Bacteria Urine None Seen; Culture Indicated Urine Cult Not Indicated; RBC Urine 0-1/HPF (0-5/HPF); Squamous Epithelial Cell Urine None Seen (0-5/HPF); Urine Volume 10mL (spun); WBC Urine None Seen (0-5/HPF)
[2024-05-04] MEDS: KETOROLAC 30 MG/ML VIAL 15 MG IV (08:12)
[2024-05-04] MEDS: ONDANSETRON 4 MG/2 ML INJ IV (08:12)
[2024-05-04 08:13] LABS: Add Manual Diff / Slide Review NO; Basophils Absolute Auto 100 /uL (0-100); Basophils Percent Auto 0.7 % (0-2); Eosinophils Absolute Auto 0 /uL (0-450); Eosinophils Percent Auto 0.2 % (2-4); Hematocrit 41.6 % (41-53); Hemoglobin 14.3 g/dL (13.5-17.5); Lymphocytes Absolute Auto 900 /uL (1100-4500); Lymphocytes Percent Auto 8.3 % (25-40); Mean Corpuscular HGB Conc 34.4 % (30-36); Mean Corpuscular Hemoglobin 30.8 PG (26-34); Mean Corpuscular Volume 89.7 fL (80-100); Monocytes Absolute Auto 600 /uL (0-900); Monocytes Percent Auto 5.2 % (3-14); Neutrophils Absolute Auto 9600 /uL (1500-7000); Neutrophils Percent Auto 85.6 % (50-75); Platelet Count 245 X10^3/uL (150-400); Red Blood Cell Count 4.64 X10^6/uL (4.5-5.9); Red Cell Distribution Width 13.4 % (11.6-14.8); White Blood Cell Count 11.2 X10^3/uL (4.5-11.0)
[2024-05-04 08:22] LABS: Alanine Aminotransferase 39 IU/L (<50); Albumin 4.5 g/dL (3.5-5.0); Albumin Globulin Ratio 1.5 (1.0-2.8); Alkaline Phosphatase 102 U/L (38-126); Aspartate Aminotransferase 40 IU/L (17-59); BUN Creatinine Ratio 19.7 (6-22); Bilirubin Total 0.7 mg/dL (0.2-1.3); Blood Urea Nitrogen 24 mg/dL (9-20); Calcium 9.3 mg/dL (8.4-10.2); Carbon Dioxide 20 mmol/L (22-32); Chloride 104 mmol/L (98-107); Estimated Glomerular Filt Rate > 60 mL/min (>60); Globulin 3.1 g/dL (1.7-4.1); Glucose 345 mg/dL (80-110); HEMOLYSIS < 15 (0-50); Lipase 112 U/L (23-300); Potassium 4.2 mmol/L (3.4-5.1); Sodium 136 mmol/L (137-145); Total Protein 7.6 g/dL (6.3-8.2)
[2024-05-04] MEDS: TAMSULOSIN 0.4 MG CAPSULE PO (09:57)
[2024-05-04 10:03] VITALS: BP 135/85; PULSE 77; RESP 18; O2SAT 97
== END 2024-05-04 10:04 | disposition home or self-care (01) ==
PROVIDERS: Emergency Provider Emergency Medicine; PCP Family Medicine
DX: N20.0 Calculus of kidney (principal); N28.1 Cyst of kidney, acquired; R11.2 Nausea with vomiting, unspecified; Z87.442 Personal history of urinary calculi
CPT/HCPCS: 36415; 74176; 80053; 81003; 81015; 83690; 85025; 96374; 96375; 99284; J1885; J2405

== ENCOUNTER 2024-06-11 13:59 | Emergency (ER) | payer OTHER, SELFPAY ==
[2022-09-15 11:10] VITALS: BMI 46.0
[2024-06-11 14:15] VITALS: BP 136/89; PULSE 61; RESP 16; TEMP 36.4; O2SAT 97; BMI 47.5
--- NOTE | 2024-06-11 14:27 | DI.RAD.S_ITS ---
PROCEDURE: XR HAND LT MIN 3V INDICATIONS: digits 2, 3, 4, table saw accident, r o tuft fx's TECHNIQUE: 3 views of the hand(s) acquired. COMPARISON: [facility], , XR HAND LT MIN 3V, 03/30/2020, 11:30. FINDINGS: Bones: Minimal distal tuft fractures the distal aspect of the distal phalanges of the 2nd, 3rd, and 4th digits. Carpal bones are normally aligned. No suspicious bony lesions. Soft tissues: No suspicious soft tissue calcifications. Soft tissue laceration associated with the distal tuft fractures. IMPRESSION: Soft tissue lacerations associated with distal aspect distal tuft fractures of the 2nd, 3rd, 4th digits. No radiopaque foreign bodies. Dictated by: Martin Adames M.D. on 06/11/2024 at 15:14 Approved by: Martin Adames M.D. on 06/11/2024 at 15:16
[2024-06-11] MEDS: TET,DIPH,PERTUSS(ACELL),VAC/PF 0.5 ML SYRINGE IM (14:40)
--- NOTE | 2024-06-11 14:42 | ED.WOUNDLAC ---
HPI - Wound/Laceration <HALINA Esteves - Last Filed: 06/11/24 16:26> General Chief Complaint: Wound/Laceration Stated Complaint: L Hand Saw Injury Time Seen by Provider: 06/11/24 14:32 History of Present Illness HPI narrative: 63-year-old male, never smoker, presents emergency department with left hand injury. Patient was using his table saw at his home and grazed his left hand across the blades affecting nearly every fingertip. As pain is starting to increase, patient has not taken anything at home, will provide oral Dilaudid, per pharmacist recommendation secondary to allergies. Last tetanus shot was over a years ago and will update today. Patient's spouse is at the bedside. Related Data Previous Rx's Medication Instructions Recorded bisoprolol fumarate 5 mg tablet 5 mg PO DAILY #90 tabs 04/08/24 empagliflozin 25 mg tablet 25 mg PO DAILY #90 tabs 04/08/24 (Jardiance) losartan 100 1 tab PO DAILY #90 tabs 04/08/24 mg-hydrochlorothiazide 25 mg tablet metformin 500 mg tablet,extended 1,000 mg (2 x 500 mg) PO BID #180 04/08/24 release 24 hr tabs mesalamine 250 mg capsule,extended 1,000 mg (4 x 250 mg) PO TID #360 05/29/24 release (Pentasa) caps peg 3350-electrolytes 236 240 ml PO Q10M #4,000 mL 06/06/24 gram-22.74 gram-6.74 gram-5.86 gram solution (Golytely) cephalexin 500 mg capsule 500 mg PO QID 7 days #28 caps 06/11/24 hydromorphone 2 mg tablet 2 mg PO Q6H PRN pain #10 tabs 06/11/24 (Dilaudid) Allergies Allergy/AdvReac Type Severity Reaction Status Date / Time amoxicillin [AMOXICILLIN] Allergy Intermediate RASH ALL Verified 05/29/24 09:12 OVER BODY hydrocodone [HYDROCODONE] AdvReac Intermediate VOMITING Verified 05/29/24 09:12 FOR A LONG TIME AND MADE ME SICKER THAN A DOG. oxycodone [OXYCODONE] AdvReac Intermediate VOMITING Verified 05/29/24 09:12 FOR A LONG TIME AND MADE ME SICKER THAN DOG Review of Systems <HALINA Esteves - Last Filed: 06/11/24 16:26> Review of Systems Narrative: Narrative: See HPI. GENERAL: Denies chills, fatigue, fever, sweats. HEENT: Denies sinus pain, ear pain, sore throat, difficulty swallowing, dizziness. RESPIRATORY: Denies dyspnea, cough, wheezing, sputum. CARDIOVASCULAR: Denies chest pain, palpitations, edema. GASTROINTESTINAL: Denies nausea, vomiting, abdominal pain, diarrhea, constipation. MSK: Denies weakness, joint pain, or bony pain. SKIN: Denies rash, skin lesions, or pruritis. Endorses multiple lacerations to left hand fingertips. NEUROLOGIC: Denies weakness, dizziness, headache, numbness, confusion. Patient History <HALINA Esteves - Last Filed: 06/11/24 16:26> Medical History Irritable bowel syndrome with alternating bowel habits Costochondritis, acute WILCOX (dyspnea on exertion) Foreign body (FB) in soft tissue Headache Pressure in left side of chest Hand pain, left Low HDL (under 40) Hypertriglyceridemia without hypercholesterolemia Plantar fasciitis, bilateral Plantar fasciitis of left foot Type 2 diabetes mellitus with peripheral neuropathy Morbid obesity with BMI of 45.0-49.9, adult History of flexible sigmoidoscopy Obstructive sleep apnea Chickenpox Mumps Rubella Hypertension (2007) Herpes (1994) Surgical History Status post laparoscopic cholecystectomy (09/1991) Status post hernia repair (~2010) Family History Brother Malignant melanoma, unspecified site Brother History of skin cancer Father Type 2 diabetes mellitus without complication, unspecified intermediate accountant insulin use status Coronary artery disease involving [place] coronary artery of [place] heart without angina pectoris Mother History of lupus Social History household members: spouse Smoking Status: Never smoker second hand exposure: No alcohol intake: current substance use type: does not use Smoking Status: Never smoker alcohol intake frequency: 0-2 drinks per day Exam <HALINA Esteves - Last Filed: 06/11/24 16:26> Narrative Exam Narrative: Exam Narrative: GENERAL: This is a well-nourished, well-developed patient, in no acute distress HEAD: Atraumatic. Normocephalic. ENT: Nose without bleeding, purulent drainage. Airway patent. RESPIRATORY: Respiratory rate and effort are normal. MSK: Moves all extremities. Normal range of motion, no clubbing or edema. Neurovascularly intact. NEURO: A&O x 3. SKIN: Warm, dry, no rashes or lesions noted. Superficial lacerations noted to left hand fingertips 2 through 4. Initial Vital Signs Initial Vital Signs: Vital Signs Temperature 97.6 F 06/11/24 14:15 Pulse Rate 61 06/11/24 14:15 Respiratory Rate 16 06/11/24 14:15 Blood Pressure 136/89 06/11/24 14:15 Pulse Oximetry 97 06/11/24 14:15 Oxygen Delivery Method Room Air 06/11/24 14:15 Reviewed <Olu Dailey MD - Last Filed: 06/13/24 08:32> Initial Vital Signs Initial Vital Signs: Vital Signs Temperature 97.6 F 06/11/24 14:15 Pulse Rate 61 06/11/24 14:15 Respiratory Rate 16 06/11/24 14:15 Blood Pressure 136/89 06/11/24 14:15 Pulse Oximetry 97 06/11/24 14:15 Oxygen Delivery Method Room Air 06/11/24 14:15 Course <HALINA Esteves - Last Filed: 06/11/24 16:26> Orders Ordered: Discontinued Medications Diphtheria/Tetanus/Acell Pertussis (Tet,Diph,Pertuss(Acell),Vac/Pf 0.5 Ml Syringe) 0.5 ml IM .ONCE ONE Stop: 06/11/24 14:30 Last Admin: 06/11/24 14:40 Dose: 0.5 ml Documented By: KRISSY Hydromorphone HCl (Hydromorphone 2 Mg Tablet) 2 mg PO NOW ONE Stop: 06/11/24 14:42 Last Admin: 06/11/24 15:07 Dose: 2 mg Documented By: KRISSY Lidocaine HCl (Lidocaine 1% 20 Ml) 3 ml SUBCUT NOW ONE Stop: 06/11/24 16:02 Last Admin: 06/11/24 16:15 Dose: 3 ml Documented By: KRISSY Consultations Consultation #1: Dr. Lev Baeza, Orthopedics. Recommended numbing fingers and applying sutures to improve healing along with a Xeroform dressing and prophylactic antibiotics. Recommended patient follow-up with orthopedics next week. Vital Signs Vital signs: Vital Signs - 8 hr 06/11/24 14:15 Temperature 97.6 F Pulse Rate 61 Respiratory Rate 16 Blood Pressure 136/89 Pulse Oximetry 97 Oxygen Delivery Method Room Air <Olu Dailey MD - Last Filed: 06/13/24 08:32> Orders Ordered: Discontinued Medications Diphtheria/Tetanus/Acell Pertussis (Tet,Diph,Pertuss(Acell),Vac/Pf 0.5 Ml Syringe) 0.5 ml IM .ONCE ONE Stop: 06/11/24 14:30 Last Admin: 06/11/24 14:40 Dose: 0.5 ml Documented By: KRISSY Hydromorphone HCl (Hydromorphone 2 Mg Tablet) 2 mg PO NOW ONE Stop: 06/11/24 14:42 Last Admin: 06/11/24 15:07 Dose: 2 mg Documented By: KRISSY Lidocaine HCl (Lidocaine 1% 20 Ml) 3 ml SUBCUT NOW ONE Stop: 06/11/24 16:02 Last Admin: 06/11/24 16:15 Dose: 3 ml Documented By: KRISSY Vital Signs Vital signs: Vital Signs - 8 hr 06/11/24 14:15 Temperature 97.6 F Pulse Rate 61 Respiratory Rate 16 Blood Pressure 136/89 Pulse Oximetry 97 Oxygen Delivery Method Room Air MDM - Wound/Laceration <HALINA Esteves - Last Filed: 06/11/24 16:26> Differential Diagnosis Differential diagnosis: Likely laceration Imaging Data Extremity x-ray #1: Radiologist's Impression: [address] [address] XRay Report Signed Patient: Bryan Kim MR#: [id number] : 1960 Acct:[id number] Age/Sex: 63 / M Date of Service: 06/11/24 Loc: ED Accession Number: [id number] Procedure: XR hand LT min 3V Ordering Provider: Olu Dailey MD PROCEDURE: XR HAND LT MIN 3V INDICATIONS: digits 2, 3, 4, table saw accident, r o tuft fx's TECHNIQUE: 3 views of the hand(s) acquired. [facility], 11:30. FINDINGS: Bones: Minimal distal tuft fractures the distal aspect of the distal phalanges of the 2nd, 3rd, and 4th digits. Carpal bones are normally aligned. No suspicious bony lesions. Soft tissues: No suspicious soft tissue calcifications. Soft tissue laceration associated with the distal tuft fractures. IMPRESSION: Soft tissue lacerations associated with distal aspect distal tuft fractures of the 2nd, 3rd, 4th digits. No radiopaque foreign bodies. Dictated by: Martin Adames M.D. on 06/11/2024 at 15:14 Approved by: Martin Adames M.D. on 06/11/2024 at 15:16 MDM Narrative Medical decision making narrative: 63-year-old male with lacerations to left hand fingertips. X-ray obtained that revealed tuft fractures digits 2, 3 and 4. Pain control provided. Tetanus status updated. Contacted on-call orthopedics, Dr. Lev Baeza, who recommended sutures were possible and dressed with Xeroform. 2nd and 3rd digits were anesthetized with lidocaine, but after careful review with magnifying lens and mutual decision making with patient, sutures did not seem would result in any improvement in healing or aesthetics. Fingers were dressed with Xeroform and pressure dressing. Will place patient on prophylactic antibiotics and short course of pain medication. Discussed proper wound care with patient and spouse. Instructions to follow up with Orthopedics next week to ensure wound is healing. Patient and spouse verbalized understanding and were agreeable with course of action. Discharge Plan Departure Patient Disposition: Home Clinical Impression: Laceration, Avulsion of skin Instructions: DI for Wound Infection Activity Restrictions/Additional Instructions: *You have been diagnosed with laceration and tuft fractures of your left hand index, middle and ring finger. We are able to clean out your wounds but agreed that there was no viable skin to suture. Therefore, we have dressed your fingers with a pressure dressing. Please watch for signs of infection that include increased redness, swelling, yellow discharge, etc.. If this occurs, return to the emergency department or follow up with your family doctor as soon as possible. Will place you on prophylactic antibiotics along with a short course of pain medication. Please follow-up with orthopedics to ensure wounds are healing. *What to do: *Please continue to take your regular medications as directed. [ x] New medication prescriptions sent to your pharmacy: [[facility]] [ ] New medication written as a paper prescription [ ] No new medications given *Please follow up with your primary care provider in 2-3 days, call for an appointment. Let them know you were seen in the Emergency Department and that we ask that you be seen in follow up. We will electronically transmit a record of today's note if your PCP is in our system *If you do not have a primary care provider please contact the [facility] Resource line at [phone]. They will ask some questions about your medical history and help get you set up with a doctor in the community. ? Return to ER if you should have any new, worsening or concerning symptoms, such as worsening pain, severe headache, confusion, chest pain, difficulty breathing, fever greater than 101 F, shaking chills, persistent vomiting to the point that you cannot drink fluids, or other new or worsening symptoms. Prescriptions: New cephalexin 500 mg capsule 500 mg PO QID 7 Days Qty: 28 0RF hydromorphone [Dilaudid] 2 mg tablet 2 mg PO Q6H PRN (Reason: pain) Qty: 10 0RF No Action bisoprolol fumarate 5 mg tablet 5 mg PO DAILY Qty: 90 1RF Jardiance 25 mg tablet 25 mg PO DAILY MDD 25mg Qty: 90 1RF Rx Instructions: Take one tablet by mouth daily losartan-hydrochlorothiazide 100-25 mg tablet 1 tab PO DAILY Qty: 90 1RF metformin 500 mg tablet extended release 24 hr 1,000 mg PO BID Qty: 180 1RF peg 3350-electrolytes [Golytely] 236-22.74-6.74 -5.86 gram recon soln 240 ml PO Q10M Qty: 4000 0RF Rx Instructions: take as directed by Physician Pentasa 250 mg capsule, extended release 1,000 mg PO TID Qty: 360 3RF Referrals: Yovana Baeza MD [Physician] - (Please evaluate and treat left hand 2nd, 3rd and 4th digit tuft fracture and laceration.) Blayne Lopez DO [Primary Care Provider] - Stand Alone Forms: Patient Portal/API/Survey ED Sign-out <Olu Dailey MD - Last Filed: 06/13/24 08:32> Cosign ED Attending Cosignature Attestation: I was immediately available in the department for consultation. ?This documentation has been reviewed and I agree with assessment and plan. Supervised by Olu Dailey MD
[2024-06-11] MEDS: HYDROMORPHONE 2 MG TABLET PO (15:07)
[2024-06-11] MEDS: LIDOCAINE 1% 20 ML 3 ML SUBCUT (16:15)
[2024-06-11 16:37] VITALS: BP 137/86; PULSE 82; RESP 20; O2SAT 98
== END 2024-06-11 16:36 | disposition home or self-care (01) ==
PROVIDERS: Emergency Provider Registered Nurse; PCP Family Medicine
DX: S62.631B Displaced fracture of distal phalanx of left index finger, initial encounter for open fracture (principal); S62.633B Displaced fracture of distal phalanx of left middle finger, initial encounter for open fracture; S62.635B Displaced fracture of distal phalanx of left ring finger, initial encounter for open fracture; W27.0XXA Contact with workbench tool, initial encounter; Z23 Encounter for immunization
CPT/HCPCS: 73130; 90471; 99284; 90715

== ENCOUNTER → 2024-06-19 07:11 | Outpatient (CLI) | payer OTHER, SELFPAY ==
[2022-09-15 11:10] VITALS: BMI 46.0
[2024-06-19 07:32] LABS: Add Manual Diff / Slide Review NO; Basophils Absolute Auto 100 /uL (0-100); Basophils Percent Auto 1.1 % (0-2); Eosinophils Absolute Auto 200 /uL (0-450); Hematocrit 41.1 % (41-53); Hemoglobin 14.1 g/dL (13.5-17.5); Lymphocytes Absolute Auto 1400 /uL (1100-4500); Mean Corpuscular HGB Conc 34.3 % (30-36); Mean Corpuscular Hemoglobin 31.1 PG (26-34); Mean Corpuscular Volume 90.5 fL (80-100); Monocytes Absolute Auto 600 /uL (0-900); Monocytes Percent Auto 10.9 % (3-14); Neutrophils Absolute Auto 3300 /uL (1500-7000); Platelet Count 252 X10^3/uL (150-400); Red Blood Cell Count 4.54 X10^6/uL (4.5-5.9); Red Cell Distribution Width 13.2 % (11.6-14.8); White Blood Cell Count 5.5 X10^3/uL (4.5-11.0)
[2024-06-19 08:56] LABS: Alanine Aminotransferase 30 IU/L (<50); Albumin 4.2 g/dL (3.5-5.0); Albumin Globulin Ratio 1.5 (1.0-2.8); Alkaline Phosphatase 65 U/L (38-126); Aspartate Aminotransferase 32 IU/L (17-59); BUN Creatinine Ratio 19.8 (6-22); Bilirubin Total 0.7 mg/dL (0.2-1.3); Blood Urea Nitrogen 20 mg/dL (9-20); Calcium 9.6 mg/dL (8.4-10.2); Carbon Dioxide 24 mmol/L (22-32); Chloride 102 mmol/L (98-107); Cholesterol 194 mg/dL (140-199); Estimated Glomerular Filt Rate > 60 mL/min (>60); Globulin 2.8 g/dL (1.7-4.1); Glucose 181 mg/dL (80-110); HDL Cholesterol 30 mg/dL (40-60); HEMOLYSIS < 15 (0-50); LDL Cholesterol Calculated 110 mg/dL (<100); Potassium 4.2 mmol/L (3.4-5.1); Sodium 134 mmol/L (137-145); Triglycerides 271 mg/dL (35-150)
[2024-06-19 09:22] LABS: Prostate Specific Antigen Scrn 0.557 ng/mL (0.1-4.0)
== END ==
PROVIDERS: PCP Family Medicine; Referring Provider Family Medicine; Visit Provider Family Medicine
DX: E11.65 Type 2 diabetes mellitus with hyperglycemia (principal); I10 Essential (primary) hypertension; E78.6 Lipoprotein deficiency; E78.1 Pure hyperglyceridemia; E66.01 Morbid (severe) obesity due to excess calories; E11.42 Type 2 diabetes mellitus with diabetic polyneuropathy; Z68.42 Body mass index [BMI] 45.0-49.9, adult; Z12.5 Encounter for screening for malignant neoplasm of prostate
CPT/HCPCS: 36415; 80053; 80061; 85025; G0103

== ENCOUNTER 2024-06-23 07:11 | Day surgery (SDC) | payer OTHER, SELFPAY ==
[2022-09-15 11:10] VITALS: BMI 46.0
[2024-06-23 07:48] VITALS: BP 117/73; PULSE 62; RESP 18; TEMP 36.7; O2SAT 97
[2024-06-23] MEDS: SODIUM CHLORIDE 0.9% 1,000 ML 150 ML IV (07:50)
--- NOTE | 2024-06-23 08:22 | P.HP_ITS ---
History of Present Illness History of Present Illness Date Patient Seen: 06/23/24 Time Patient Seen: 08:22 Chief complaint: Screening Colonoscopy Narrative: 63-year-old white male with personal history of polyps from colonoscopy approximately 6 years ago. No changes in bowel habits. [facility] Medical History (Updated 06/23/24 @ 08:23 by Kayden Russell MD) Colon cancer screening Personal history of colonic polyps (06/23/24) Irritable bowel syndrome with alternating bowel habits Costochondritis, acute WILCOX (dyspnea on exertion) Foreign body (FB) in soft tissue Headache Pressure in left side of chest Hand pain, left Low HDL (under 40) Hypertriglyceridemia without hypercholesterolemia Plantar fasciitis, bilateral Plantar fasciitis of left foot Type 2 diabetes mellitus with peripheral neuropathy Morbid obesity with BMI of 45.0-49.9, adult History of flexible sigmoidoscopy Obstructive sleep apnea Chickenpox Mumps Rubella Hypertension (2007) Herpes (1994) Surgical History Status post laparoscopic cholecystectomy (09/1991) Status post hernia repair () Family History Brother Malignant melanoma, unspecified site Brother History of skin cancer Father Type 2 diabetes mellitus without complication, unspecified equipment operator intermodal yard insulin use status Coronary artery disease involving [place] coronary artery of [place] heart without angina pectoris Mother History of lupus Social History household members: spouse Smoking Status: Never smoker second hand exposure: No alcohol intake: current substance use type: does not use Meds Home Medications and Allergies Home Medications Medication Instructions Recorded Confirmed Type bisoprolol fumarate 5 mg tablet 5 mg PO DAILY #90 tabs 04/08/24 06/23/24 Rx empagliflozin 25 mg tablet 25 mg PO DAILY #90 tabs 04/08/24 06/23/24 Rx (Jardiance) losartan 100 1 tab PO DAILY #90 tabs 04/08/24 06/23/24 Rx mg-hydrochlorothiazide 25 mg tablet metformin 500 mg tablet,extended 1,000 mg (2 x 500 mg) PO BID #180 04/08/24 06/23/24 Rx release 24 hr tabs Allergies Allergy/AdvReac Type Severity Reaction Status Date / Time amoxicillin [AMOXICILLIN] Allergy Intermediate RASH ALL Verified 06/23/24 07:27 OVER BODY hydrocodone [HYDROCODONE] AdvReac Intermediate VOMITING Verified 06/23/24 07:27 FOR A LONG TIME AND MADE ME SICKER THAN A DOG. oxycodone [OXYCODONE] AdvReac Intermediate VOMITING Verified 06/23/24 07:27 FOR A LONG TIME AND MADE ME SICKER THAN DOG Review of Systems Review of Systems ROS: Yes All systems reviewed with the patient and are negative except as otherwise documented Exam Vital Signs (past 8 hours): - 06/23/24 07:48 Temperature 98.0 F Pulse Rate 62 Respiratory Rate 18 Blood Pressure 117/73 Pulse Oximetry 97 Oxygen Delivery Method Room Air Oxygen Delivery Method Room Air Narrative Exam Narrative: Gen: NAD, sitting comfortably in bed, appears well HEENT: Sclera are anicteric, head is normocephalic and atraumatic, trachea is midline. CV: RRR, no JVD Resp: clear to auscultation bilaterally, equal chest wall movement bilaterally Abd: soft, nontender, normoactive bowel sounds Ext: no edema, full range of motion Neuro: Cranial nerves II-XII grossly intact, no focal deficits Skin: No erythema or ecchymosis Assessment & Plan Assessment and plan (1) Personal history of colonic polyps: Status: Acute (2) Colon cancer screening: Status: Acute Assessment & Plan narrative: Patient presents for colonoscopy Risks, benefits, alternatives to colonoscopy explained, including but not limited to bowel perforation or other serious complication requiring surgery at less than 1 in 5000 colonoscopies, abdominal pain, cramping or bleeding and less than 1% of colonoscopies, and the chances that we find a diagnosis that would require further intervention of about 2%. Patient agrees to proceed. Time-Based Coding :: [TOTAL MINUTES] spent with patient and on the chart (including review of chart, obtaining history, exam, reviewing outside data, placing orders, documenting ex am and treatment plan, and counseling patient) on [DATE]. PROFEE Senior Hadoop Developer Document charge(s): No
--- NOTE | 2024-06-23 09:01 | P.OP.COLON_ITS ---
Operative Date/Time/Diagnoses Date of procedure: 06/23/24 Time of procedure: 09:02 Pre-op diagnosis: Colon screening Post-op diagnosis: same Procedure & Clinicians Study performed: Colonoscopy Same procedure as scheduled: Yes Indications: Colon screening Surgeon: Kayden Russell Procedure Notes SCOAP/Timeout: Performed Procedure in detail: Time-out was performed. Mac was induced. Patient was placed in left lateral d ecubitus position. The perineum was inspected without any gross abnormality. Lubricated pediatric colonoscope was inserted and advanced to the cecum. The terminal ileum was intubated. The colonoscope was withdrawn slowly inspecting the circumference of the colon. Very small polyps may have been missed, prep quality was adequate. Retroflexed view of the rectum showed small, non prolapsed nonbleeding internal hemorrhoids. The scope was withdrawn the patient was taken to PACU in good condition. Scope withdrawal time: 7 Sedation minutes: 14 Findings: internal hemorrhoids Specimen(s): none sent Complications: none Impression: Normal colonoscopy Post-procedure Recommendations: Colonoscopy in 10 years Follow up: as needed Disposition: PACU
[2024-06-23 09:04] VITALS: BP 125/53; PULSE 66; RESP 12; TEMP 36.3; O2SAT 96
[2024-06-23 09:08] VITALS: BP 102/71; PULSE 74; RESP 14; O2SAT 96
[2024-06-23 09:14] VITALS: BP 116/71; PULSE 68; RESP 19; TEMP 36.3; O2SAT 97
[2024-06-23 09:18] VITALS: BP 102/70; PULSE 62; RESP 13; O2SAT 98
== END 2024-06-23 09:30 | disposition home or self-care (01) ==
PROVIDERS: PCP Family Medicine; Referring Provider Surgery; Visit Provider Surgery
PROC: 0DJD8ZZ Inspection of Lower Intestinal Tract, Via Natural or Artificial Opening Endoscopic (ICD-10-PCS; CPT 45378; principal; 2024-06-23 08:15)
DX: Z12.11 Encounter for screening for malignant neoplasm of colon (principal); K64.8 Other hemorrhoids; Z86.0100 Personal history of colon polyps, unspecified; I10 Essential (primary) hypertension; G47.33 Obstructive sleep apnea (adult) (pediatric); E11.40 Type 2 diabetes mellitus with diabetic neuropathy, unspecified; E66.01 Morbid (severe) obesity due to excess calories; Z68.42 Body mass index [BMI] 45.0-49.9, adult; Z79.84 Long term (current) use of oral hypoglycemic drugs
CPT/HCPCS: G0105; J2405; J2704